=== PATIENT | female | born 1950 | race Caucasian/White ===

== ENCOUNTER 2020-05-15 07:45 | Emergency (ER) | payer MEDICARE, SELFPAY ==
[2020-05-15] VITALS (7 sets, daily range): BP systolic 122–159; BP diastolic 60–84; PULSE 81–92; RESP 17; TEMP 36.2; O2SAT 98; BMI 47.8
--- NOTE | ~2020-05-15 | XR_ITS ---
EXAMINATION: XR CHEST CLINICAL INFORMATION: Tachycardia lightheadedness COMPARISON: Prior chest April 2019 TECHNIQUE: 2 views of the chest were obtained. FINDINGS: No significant abnormality is noted involving the heart, lungs, mediastinum, bony thorax or soft tissues. XR/XR chest 2V IMPRESSION: Unremarkable examination.
--- NOTE | ~2020-05-15 | CT_ITS ---
EXAMINATION: CT ANGIOGRAM OF THE CHEST WITH AND WITHOUT CONTRAST (CT PULMONARY ANGIOGRAM FOR PE) CLINICAL INFORMATION: Metastatic breast CA. Rule out PE. Palpitations. Lightheaded. COMPARISON: Same day chest radiograph is reviewed. CTA chest PE study dated December 08, 2018. TECHNIQUE: Prior to contrast administration, noncontrast localization images were obtained. Subsequently, multidetector volumetric imaging was performed from the thoracic inlet to below the diaphragms following the administration of 75 mL Omnipaque 350 intravenous contrast. No contrast reaction reported Sagittal, coronal, and MIP oblique sagittal reformatted images were obtained on the CT workstation, uploaded to PACS, and reviewed. This CT examination was performed using dose optimization techniques as appropriate, variously including the following: *Automated exposure control *Adjustment of mA and/or kV according to patient size (this includes techniques or standardized protocols for targeted exams where dose is matched to indication/reason for exam; i.e. extremities or head) *Use of iterative reconstruction technique Total exam dose-length product 430 mGy-cm FINDINGS: QUALITY OF STUDY/CONTRAST BOLUS: The contrast bolus timing is satisfactory. However, there is fairly marked motion artifact in the bilateral lung bases limiting evaluation for pulmonary embolism. PULMONARY ARTERIES: There is no evidence of central pulmonary embolism. Limited evaluation of the segmental vessels in the bilateral lower lobes, particularly on the right. Otherwise no definite evidence of pulmonary emboli. THORACIC AORTA: No evidence of aneurysm or dissection. LUNG: There is hazy groundglass attenuation and possible slight nodular pattern in the periphery of the bilateral lung apices, right greater than left. This has increased since the prior CT from December 08, 2018. The remainder of the lung parenchyma is relatively clear. The central airways are patent. PLEURA: No pneumothorax or pleural effusion. MEDIASTINUM: No significant cardiomegaly. No pericardial effusion. No evidence of pathologically enlarged mediastinal or hilar lymphadenopathy. No evidence of septal bowing or right heart strain. CHEST WALL/AXILLA: Numerous surgical clips are visualized within the right chest wall and left axilla. OSSEOUS STRUCTURES: No definite acute or suspicious osseous lesion is demonstrated. UPPER ABDOMEN: Unremarkable. No reflux of contrast into the hepatic veins to suggest elevated right heart pressures. CT/CT angio chest PE protocol IMPRESSION: No evidence of central pulmonary emboli. Motion artifact in the lung bases, particularly right lower lobe, limits evaluation of those arterial branches. Peripheral groundglass micronodular opacities in the bilateral lung apices are of uncertain etiology, however the distribution may reflect radiation therapy related changes if patient has received prior radiation therapy for breast cancer treatment. VTE: negative
--- NOTE | 2020-05-15 08:36 | ECG_ITS ---
Test Reason : DIZZINESS Blood Pressure : / mmHG Vent. Rate : 084 BPM Atrial Rate : 084 BPM P-R Int : 136 ms QRS Dur : 088 ms QT Int : 398 ms P-R-T Axes : 008 -23 054 degrees QTc Int : 470 ms Normal sinus rhythm Moderate voltage criteria for LVH, may be normal variant Borderline ECG When compared with ECG of 08-DEC-2018 14:58, No significant change was found Referred By: Darlyn Ann Electronically Signed By:KATIA ASENCIO
[2020-05-15 09:00] LABS: Basophils Percent Auto 0.3 % (0-2); Eosinophils Percent Auto 0.7 % (0-4); Hematocrit 36.9 % (37-47); Hemoglobin 12.4 g/dl (12.0-16.0); Imm Gran Abs Auto 0.01 X10*3/uL (0.00-0.03); Imm Gran Pct Auto 0.3 % (0.0-0.4); Lymphocytes Absolute Auto 0.5 X10*3/uL (1.2-4.9); Lymphocytes Percent Auto 15.4 % (20-40); MANUAL DIFF FLAG SCAN; Mean Corpuscular HGB Conc 33.6 g/dl (31.0-35.0); Mean Corpuscular Hemoglobin 33.2 pg (27.0-33.0); Mean Corpuscular Volume 98.9 fL (80-98); Mean Platelet Volume 9.3 fL (9.4-12.3); Monocytes Absolute Auto 0.2 X10*3/uL (0.1-1.2); Monocytes Percent Auto 7.2 % (2-11); Neutrophils Absolute Auto 2.3 X10*3/uL (2.0-8.3); Neutrophils Percent Auto 76.1 % (45-73); Platelet Count 188 X10*3/uL (160-400); Red Blood Count 3.73 X10*6/uL (4.20-5.50); Red Cell Distribution Width 14.6 % (11.0-16.0); SCAN SMEAR FLAG 1; White Blood Count 3.1 X10*3/uL (4.8-10.8)
[2020-05-15 09:05] LABS: Prothrombin Time 12.1 SEC (10.8-13.0)
[2020-05-15 09:08] LABS: Partial Thromboplastin Time 36.1 SEC (24.1-38.0)
[2020-05-15] MEDS: 0.9 % Sodium Chloride 1,000 ML 999 ML IVCONT (09:08)
[2020-05-15 09:21] LABS: SLIDE REVIEW VERIFIED
--- NOTE | 2020-05-15 09:25 | ED.DIZZY ---
HPI - Dizziness General Chief Complaint: Dizziness Stated Complaint: high blood pressure, dizzyness Time Seen by Provider: 05/15/20 08:21 Source: patient Mode of arrival: ambulatory History of Present Illness HPI Narrative: 69-year-old female with a past medical history of metastatic breast cancer on oral chemotherapy presenting to the ED complaining of high blood pressure, elevated HR, lightheadedness, and palpitations x3 days. Reports blood pressure 150-160's/80 at home with heart rate in the 90s. Denies fever, chills, chest pain/shortness of breath, abdominal pain, nausea/vomiting, LE edema, numbness/tingling MD elicited complaint: lightheadedness Related Data Allergies Allergy/AdvReac Type Severity Reaction Status Date / Time No Known Allergies Allergy Unknown Unverified 12/03/19 14:54 indomethacin Allergy Unknown violent Uncoded 12/24/18 00:00 headache Review of Systems Review of Systems: Constitutional: No Fever, No Chills, No Fatigue, No Malaise ENT/Mouth: No sore throat, No Rhinorrhea, No Swallowing Difficulty Cardiovascular: No Chest Pain, No SOB, No Dyspnea on Exertion, No Orthopnea, No Edema, + Palpitations Respiratory: No Cough, No Dyspnea Gastrointestinal: No Nausea, No Vomiting, No Diarrhea, No Constipation, No Abdominal pain Genitourinary: No Dysuria, No Hematuria, No Flank Pain Musculoskeletal: No joint pain, No Myalgias, No Joint Swelling Skin: No Skin Lesions, No rash Neuro: No Weakness, No Numbness, No Paresthesias, No Loss of Consciousness, No Dizziness, +Lightheadedness, No Headache Yes all other systems are reviewed and are negative [facility] Past Medical History Attestation statement: The following information was validated with the patient. Medical History (Updated 05/15/20 @ 12:56 by BERTHA Linder) Breast cancer Social History Social History Smoked in Last 30 Days: No Use of substances other than those prescribed or required for medical reasons: No Advance Directives: No Advance Directives Information Provided: No Physical Exam Vital Signs: Vital Signs: Last Vital Signs Temp 97.1 F 05/15/20 08:01 Pulse 84 05/15/20 13:01 Resp 17 05/15/20 08:01 BP 147/76 H 05/15/20 13:01 Pulse Ox 98 05/15/20 08:01 Body Mass Index 47.8 Const: General: cooperative, healthy appearing, comfortable, no acute distress, well developed and alert Orientation/consciousness: patient oriented x3 Limitations: no limitations HENMT: Head: Yes normal to inspection Ears: hearing grossly normal bilaterally General nose exam: Normal external nose present Face and sinus: Yes normal facial exam Eyes: General: appearance normal, both eyes and all related structures Pupils: Equal, round and reactive pupils present EOM: EOMs intact bilaterally Neck: Neck: Yes normal visual inspection and Yes no meningeal signs Resp: Effort & Inspection: normal respiratory effort Auscultation: clear to auscultation bilaterally, no rales, no rhonchi and no wheezes Cardio: Rate: regular rate Heart sounds: S1 normal heart sound present and S2 normal heart sound present GI: Inspection: Yes normal to inspection Palpation (GI): Soft to palpation, nontender, no guarding and not rigid Skin: Rashes: no rashes Wounds: no wounds Neuro: General: patient oriented x3, gait normal, tone normal, moves all extremities, no meningeal signs, no focal motor deficits and CN's II-XI intact bilaterally Cranial nerves: Yes Equal, round and reactive pupils present Cognition (Neuro): normal cognition Gait exam (Neuro): Normal gait present Motor exam (neuro): 5/5 motor strength present throughout and Pronator motor function not present Coordination: [id number] test normal Extrem: General: Yes normal to inspection and Yes no pedal edema Course Course Course Narrative: -labs at patient's baseline. Initial troponin 6.8 > will obtain 3 hour repeat XR chest 2V IMPRESSION: Unremarkable examination. CT angio chest PE protocol IMPRESSION: No evidence of central pulmonary emboli. Motion artifact in the lung bases, particularly right lower lobe, limits evaluation of those arterial branches. Peripheral groundglass micronodular opacities in the bilateral lung apices are of uncertain etiology, however the distribution may reflect radiation therapy related changes if patient has received prior radiation therapy for breast cancer treatment. VTE: negative >> likely from prior radiation therapy but will obtain rapid COVID -1256--rapid COVID negative. Repeat troponin without 50% delta increase Initial orthostatic vital signs positive. Will repeat after IVF. -1304--repeat orthostatics improved/negative after IVF. Worrisome signs and symptoms and strict return precautions discussed. Patient verbalized understanding feel safe for discharge home MDM - Dizziness MDM Narrative Medical decision making narrative: 69-year-old female with a past medical history of metastatic breast cancer on oral chemotherapy presenting to the ED complaining of high blood pressure, elevated HR, lightheadedness, and palpitations x3 days. On exam initially tachycardic with heart rate of 92, blood pressure stable, NAD/nontoxic appearing, no focal neuro deficits, lungs CTA. Concern for metabolic/electrolyte abnormalities vs ACS vs PE vs HTN. Low concern for CVA or HTNsive urgency/emergency Plan: EKG, labs, CXR, IVF, CTA, orthostatics, Reassess Medical Records Attestation: I reviewed the patient's medical records. Lab Data Attestation: I reviewed the patient's lab results. Result diagrams: 05/15/20 08:55 05/15/20 08:55 Labs: Lab Results 05/15/20 05/15/20 05/15/20 Range/Units 08:55 08:55 08:55 WBC 3.1 L (4.8-10.8) X10*3/uL RBC 3.73 L (4.20-5.50) X10*6/uL Hgb 12.4 (12.0-16.0) g/dl Hct 36.9 L (37-47) % MCV 98.9 H (80-98) fL MCH 33.2 H (27.0-33.0) pg MCHC 33.6 (31.0-35.0) g/dl RDW 14.6 (11.0-16.0) % Plt Count 188 (160-400) X10*3/uL MPV 9.3 L (9.4-12.3) fL Immature Gran % (Auto) 0.3 (0.0-0.4) % Neut % (Auto) 76.1 H (45-73) % Lymph % (Auto) 15.4 L (20-40) % Wilkinson % (Auto) 7.2 (2-11) % Eos % (Auto) 0.7 (0-4) % Baso % (Auto) 0.3 (0-2) % Lymph # (Auto) 0.5 L (1.2-4.9) X10*3/uL Wilkinson # (Auto) 0.2 (0.1-1.2) X10*3/uL Eos # (Auto) 0.0 (0.0-0.4) X10*3/uL Baso # (Auto) 0.0 (0.0-0.2) X10*3/uL Abs Immat Gran (auto) 0.01 (0.00-0.03) X10*3/uL Absolute Neuts (auto) 2.3 (2.0-8.3) X10*3/uL Absolute Nucleated RBC 0.000 (0.0-0.012) X10*3/uL Nucleated RBC % (auto) 0.0 (0.0-0.2) /100WBC Smear Tech's Comments VERIFIED PT 12.1 (10.8-13.0) SEC INR 1.0 (0.9-1.1) APTT 36.1 (24.1-38.0) SEC Sodium 138 (135-145) mmol/L Potassium 4.0 (3.3-5.1) mmol/L Chloride 102 (96-108) mmol/L Carbon Dioxide 27 (22-29) mmol/L Anion Gap 13 (12-20) BUN 12 (9-16) mg/dL Creatinine 0.95 (0.5-1.4) mg/dL Estim Creat Clear Calc 70.9 Estimated GFR 58 Random Glucose 113 (60-115) mg/dL Calcium 9.0 (8.4-10.2) mg/dL Magnesium 2.2 (1.6-2.6) mg/dL Total Bilirubin 1.9 H (0.0-1.0) mg/dL Direct Bilirubin 0.6 H (0.0-0.5) mg/dL AST 18 (5-31) U/L ALT 15 (0-31) U/L Alkaline Phosphatase 89 (39-117) U/L Troponin I High Sens (<3.5-17.0) ng/L B-Natriuretic Peptide (<100) pg/mL Total Protein 7.3 (6.5-8.0) g/dL Albumin 4.5 (3.5-5.0) g/dL COVID-19 (TERI) (Negative) COVID-19 Clin Com 05/15/20 05/15/20 05/15/20 Range/Units 08:55 12:15 12:16 WBC (4.8-10.8) X10*3/uL RBC (4.20-5.50) X10*6/uL Hgb (12.0-16.0) g/dl Hct (37-47) % MCV (80-98) fL MCH (27.0-33.0) pg MCHC (31.0-35.0) g/dl RDW (11.0-16.0) % Plt Count (160-400) X10*3/uL MPV (9.4-12.3) fL Immature Gran % (Auto) (0.0-0.4) % Neut % (Auto) (45-73) % Lymph % (Auto) (20-40) % Wilkinson % (Auto) (2-11) % Eos % (Auto) (0-4) % Baso % (Auto) (0-2) % Lymph # (Auto) (1.2-4.9) X10*3/uL Wilkinson # (Auto) (0.1-1.2) X10*3/uL Eos # (Auto) (0.0-0.4) X10*3/uL Baso # (Auto) (0.0-0.2) X10*3/uL Abs Immat Gran (auto) (0.00-0.03) X10*3/uL Absolute Neuts (auto) (2.0-8.3) X10*3/uL Absolute Nucleated RBC (0.0-0.012) X10*3/uL Nucleated RBC % (auto) (0.0-0.2) /100WBC Smear Tech's Comments PT (10.8-13.0) SEC INR (0.9-1.1) APTT (24.1-38.0) SEC Sodium (135-145) mmol/L Potassium (3.3-5.1) mmol/L Chloride (96-108) mmol/L Carbon Dioxide (22-29) mmol/L Anion Gap (12-20) BUN (9-16) mg/dL Creatinine (0.5-1.4) mg/dL Estim Creat Clear Calc Estimated GFR Random Glucose (60-115) mg/dL Calcium (8.4-10.2) mg/dL Magnesium (1.6-2.6) mg/dL Total Bilirubin (0.0-1.0) mg/dL Direct Bilirubin (0.0-0.5) mg/dL AST (5-31) U/L ALT (0-31) U/L Alkaline Phosphatase (39-117) U/L Troponin I High Sens 6.8 9.8 (<3.5-17.0) ng/L B-Natriuretic Peptide 72 (<100) pg/mL Total Protein (6.5-8.0) g/dL Albumin (3.5-5.0) g/dL COVID-19 (TERI) Negative (Negative) COVID-19 Clin Com See Note Discharge Plan Discharge Clinical Impression: Lightheadedness, Heart palpitations Patient Disposition: Home, Self-Care Instructions: Lightheadedness (ED) Additional Instructions: Your blood work and imaging studies were reassuring today in the ED you COVID-19 test was negative It is important that you are staying hydrated at home Follow-up with her doctor as well as Cardiology Referrals: Roger Mcknight MD [Physician] - 1 week
[2020-05-15 09:35] LABS: Alanine Aminotransferase 15 U/L (0-31); Albumin Level 4.5 g/dL (3.5-5.0); Alkaline Phosphatase 89 U/L (39-117); Anion Gap 13 (12-20); Aspartate Amino Transferase 18 U/L (5-31); Bilirubin Direct 0.6 mg/dL (0.0-0.5); Bilirubin Total 1.9 mg/dL (0.0-1.0); Blood Urea Nitrogen 12 mg/dL (9-16); Carbon Dioxide 27 mmol/L (22-29); Chloride 102 mmol/L (96-108); Creatinine Clr Calc Pharmacy 70.9; Estimated Glomerular Filt Rate 58; Glucose Random 113 mg/dL (60-115); Magnesium 2.2 mg/dL (1.6-2.6); Sodium 138 mmol/L (135-145); Total Protein 7.3 g/dL (6.5-8.0)
[2020-05-15 09:39] LABS: B Type Natriuretic Peptide 72 pg/mL (<100); Troponin-I High Sensitivity 6.8 ng/L (<3.5-17.0)
[2020-05-15] MEDS: iohexoL 350 MG/ML 100 ML INFUS..BTL IV (10:35)
[2020-05-15 12:36] LABS: COVID-19 Test Negative (Negative); IDNOW Serial# 9DD0AD1C
[2020-05-15 12:45] LABS: Troponin-I High Sensitivity 9.8 ng/L (<3.5-17.0)
== END 2020-05-15 13:19 | disposition home or self-care (01) ==
PROVIDERS: Physician Assistant; Emergency Provider Emergency Medicine Emergency Medical Services; PCP Family Medicine
DX: R42 Dizziness and giddiness (principal); R00.2 Palpitations; Z20.822 Contact with and (suspected) exposure to COVID-19
CPT/HCPCS: 36415; 71046; 71275; 80048; 80076; 83735; 83880; 84484; 85025; 85610; 85730; 87635; 93005; 96360; 99283; 99284; Q9967

== ENCOUNTER 2020-08-27 19:28 | Emergency (ER) | payer MEDICARE, SELFPAY ==
--- NOTE | ~2020-08-27 | CT_ITS ---
EXAMINATION: CT ABDOMEN AND PELVIS WITHOUT CONTRAST CLINICAL INFORMATION: Left lower quadrant pain. Question diverticulitis COMPARISON: 05/12/2019 TECHNIQUE: Multidetector volumetric imaging was performed from the superior aspect of the liver through the pubic symphysis. Sagittal and coronal reformatted images were obtained on the technologist's workstation. This CT examination was performed using dose optimization techniques as appropriate, variously including the following: *Automated exposure control *Adjustment of mA and/or kV according to patient size (this includes techniques or standardized protocols for targeted exams where dose is matched to indication/reason for exam; i.e. extremities or head) *Use of iterative reconstruction technique DLP: 1867 mGy-cm FINDINGS: The lack of intravenous contrast limits evaluation of the solid visceral organs including the liver, spleen, pancreas, and kidneys. LUNG BASES: The visualized lung bases are unremarkable. LIVER, GALLBLADDER, AND BILIARY TREE: Liver is diffusely hypoattenuating consistent with diffuse hepatic steatosis. No focal liver lesion seen. The gallbladder is unremarkable with no evidence of radiopaque gallstones, gallbladder wall thickening, or obvious pericholecystic inflammatory changes. PANCREAS: Limited non-contrast evaluation is normal. No taj-pancreatic fluid. SPLEEN: Limited non-contrast evaluation is normal. ADRENAL GLANDS: Normal; no adrenal mass. KIDNEYS AND URETERS: 6-7 mm amorphous hyperdensity in the left upper pole could represent a hyperdense cyst. No hydronephrosis or calculi. GASTROINTESTINAL TRACT: Small hiatal hernia. Stomach and small bowel nondilated. Tortuous colon. Scattered colonic diverticulosis. No evidence of colitis or diverticulitis. ABDOMINAL WALL: Large hernia of the right lateral abdominal wall spigelian hernia containing small bowel and colon. No evidence of obstruction. LYMPH NODES: No pathologically enlarged lymph nodes in the abdomen or pelvis. VASCULAR: Normal caliber abdominal aorta. BLADDER: Unremarkable. PELVIC VISCERA: Normal noncontrast appearance of the uterus and ovaries. OSSEOUS STRUCTURES: No acute or suspicious osseous abnormalities. Multilevel degenerative changes of the lumbar spine. Bilateral hip arthroplasties. CT/CT abdomen pelvis wo con IMPRESSION: No acute CT findings. Large right lateral abdominal wall spigelian hernia. No evidence of obstruction.
[2020-08-27 20:00] VITALS: BP 152/82; PULSE 93; RESP 20; TEMP 36.7; O2SAT 97; BMI 46.1
--- NOTE | 2020-08-27 21:42 | ED.ABDPAIN ---
HPI - Abdominal Pain General Chief Complaint: Abdominal Pain Stated Complaint: abdomial pain Time Seen by Provider: 08/27/20 21:41 Source: patient Mode of arrival: ambulatory Limitations: no limitations History of Present Illness HPI narrative: Patient has been with history of diverticulitis noticed pain diffuse abdomen for last 3 -4 days getting worse spoke to her doctor who started her on Augmentin. patient comes here because she want to be sure is not diverticulitis complaining of nausea no vomiting no fever no chills no diarrhea no blood in stool pain is mostly upper abdomen Related Data Allergies Allergy/AdvReac Type Severity Reaction Status Date / Time No Known Allergies Allergy Unknown Verified 08/27/20 19:59 Review of Systems Review of Systems Yes all other systems are reviewed and are negative Physical Exam Vital Signs: Vital Signs: Last Vital Signs Temp 98.0 F 08/27/20 20:00 Pulse 93 08/27/20 20:00 Resp 20 08/27/20 20:00 BP 152/82 H 08/27/20 20:00 Pulse Ox 97 08/27/20 20:00 Body Mass Index 46.1 Appearance: Alert. Oriented X3. No acute distress. Obese Eyes: PERRLA, No Nystagmus ENT: Pharynx normal. Oral Mucosa moist Neck: Normal inspection. Neck supple. CVS: Normal heart rate and rhythm. Pulses normal. Respiratory: No respiratory distress. Equal air entry bilateral, no wheezing/rales/rhonchi Abdomen: Soft and diffuse tenderness upper abdomen no rebound tenderness or guarding Bowel sounds are present, no mass palpable, no CVA tenderness Skin: Skin warm and dry. Normal skin color. Normal skin turgor. Extremities: No lower extremity edema. No calf tenderness Neuro: Oriented X 3. No motor deficit. No sensory deficit.No cerebellar signs , cranial nerves II-XII intact MDM - Abdominal Pain MDM Narrative Medical decision making narrative: Patient with normal labs normal lactic acid CT scan negative for any inflammatory process patient pain is likely non pathological advised patient to have drink plenty of fluids and follow with PCP Lab Data Attestation: I reviewed the patient's lab results. Result diagrams: 08/27/20 22:00 08/27/20 22:00 Labs: Lab Results 08/27/20 08/27/20 08/27/20 Range/Units 22:00 22:00 22:00 WBC 3.1 L (4.8-10.8) X10*3/uL RBC 3.48 L (4.20-5.50) X10*6/uL Hgb 11.9 L (12.0-16.0) g/dl Hct 34.3 L (37-47) % MCV 98.6 H (80-98) fL MCH 34.2 H (27.0-33.0) pg MCHC 34.7 (31.0-35.0) g/dl RDW 14.3 (11.0-16.0) % Plt Count 161 (160-400) X10*3/uL MPV 9.4 (9.4-12.3) fL Immature Gran % (Auto) 0.3 (0.0-0.4) % Neut % (Auto) 65.5 (45-73) % Lymph % (Auto) 20.8 (20-40) % Hardin % (Auto) 12.5 H (2-11) % Eos % (Auto) 0.3 (0-4) % Baso % (Auto) 0.6 (0-2) % Lymph # (Auto) 0.7 L (1.2-4.9) X10*3/uL Hardin # (Auto) 0.4 (0.1-1.2) X10*3/uL Eos # (Auto) 0.0 (0.0-0.4) X10*3/uL Baso # (Auto) 0.0 (0.0-0.2) X10*3/uL Abs Immat Gran (auto) 0.01 (0.00-0.03) X10*3/uL Absolute Neuts (auto) 2.0 (2.0-8.3) X10*3/uL Absolute Nucleated RBC 0.000 (0.0-0.012) X10*3/uL Nucleated RBC % (auto) 0.0 (0.0-0.2) /100WBC Sodium 137 (135-145) mmol/L Potassium 4.2 (3.3-5.1) mmol/L Chloride 101 (96-108) mmol/L Carbon Dioxide 27 (22-29) mmol/L Anion Gap 13 (12-20) BUN 10 (9-16) mg/dL Creatinine 0.91 (0.5-1.4) mg/dL Estim Creat Clear Calc 71.4 Estimated GFR > 60 Random Glucose 118 H (60-115) mg/dL Lactic Acid 1.1 (0.5-2.0) mmol/L Calcium 9.2 (8.4-10.2) mg/dL Total Bilirubin 2.4 H (0.0-1.0) mg/dL AST 18 (5-31) U/L ALT 11 (0-31) U/L Alkaline Phosphatase 90 (39-117) U/L Total Protein 6.8 (6.5-8.0) g/dL Albumin 4.1 (3.5-5.0) g/dL Discharge Plan Discharge Clinical Impression: Abdominal pain Qualifiers: Abdominal location: generalized Qualified Code(s): R10.84 - Generalized abdominal pain Patient Disposition: Home, Self-Care Instructions: Abdominal Pain (ED) Additional Instructions: Drink plenty of fluids You do not have diverticulitis. Do not take antibiotics. Follow with PCP if any concerns PMFSH Past Medical History Medical History Breast cancer Surgical History Hip joint replacement status Social History Social History Advance Directives: No Advance Directives Information Provided: No
[2020-08-27 22:11] LABS: MANUAL DIFF FLAG NO
[2020-08-27 22:21] LABS: Basophils Percent Auto 0.6 % (0-2); Eosinophils Percent Auto 0.3 % (0-4); Hematocrit 34.3 % (37-47); Hemoglobin 11.9 g/dl (12.0-16.0); Imm Gran Abs Auto 0.01 X10*3/uL (0.00-0.03); Imm Gran Pct Auto 0.3 % (0.0-0.4); Lymphocytes Absolute Auto 0.7 X10*3/uL (1.2-4.9); Lymphocytes Percent Auto 20.8 % (20-40); Mean Corpuscular HGB Conc 34.7 g/dl (31.0-35.0); Mean Corpuscular Hemoglobin 34.2 pg (27.0-33.0); Mean Corpuscular Volume 98.6 fL (80-98); Mean Platelet Volume 9.4 fL (9.4-12.3); Monocytes Absolute Auto 0.4 X10*3/uL (0.1-1.2); Monocytes Percent Auto 12.5 % (2-11); Neutrophils Percent Auto 65.5 % (45-73); Platelet Count 161 X10*3/uL (160-400); Red Blood Count 3.48 X10*6/uL (4.20-5.50); Red Cell Distribution Width 14.3 % (11.0-16.0); White Blood Count 3.1 X10*3/uL (4.8-10.8)
[2020-08-27 22:41] LABS: Lactic Acid 1.1 mmol/L (0.5-2.0)
[2020-08-27 22:44] LABS: Alanine Aminotransferase 11 U/L (0-31); Albumin Level 4.1 g/dL (3.5-5.0); Alkaline Phosphatase 90 U/L (39-117); Anion Gap 13 (12-20); Aspartate Amino Transferase 18 U/L (5-31); Bilirubin Total 2.4 mg/dL (0.0-1.0); Blood Urea Nitrogen 10 mg/dL (9-16); Calcium 9.2 mg/dL (8.4-10.2); Carbon Dioxide 27 mmol/L (22-29); Chloride 101 mmol/L (96-108); Creatinine Clr Calc Pharmacy 71.4; Estimated Glomerular Filt Rate > 60; Glucose Random 118 mg/dL (60-115); Potassium 4.2 mmol/L (3.3-5.1); Sodium 137 mmol/L (135-145); Total Protein 6.8 g/dL (6.5-8.0)
== END 2020-08-28 15:51 | disposition home or self-care (01) ==
PROVIDERS: Emergency Provider Internal Medicine; PCP Family Medicine
DX: R10.84 Generalized abdominal pain (principal)
CPT/HCPCS: 36415; 74176; 80053; 83605; 85025; 99283; 99284

== ENCOUNTER 2020-09-02 01:18 | Inpatient (IN) | payer MEDICARE, SELFPAY ==
--- NOTE | ~2020-09-02 | FL_ITS ---
EXAMINATION: FL SMALL BOWEL SERIES CLINICAL INFORMATION: Small bowel obstruction COMPARISON: CT abdomen and pelvis 09/02/2020 TECHNIQUE: Following a environmental services assistant image of the abdomen, contrast was administered orally, and interval abdominal radiographs were performed to assess for contrast progression through the small bowel. Following contrast transit through the small bowel and into the colon, the patient was placed on the fluoroscopy table, and multiple spot images were obtained. FINDINGS: Fuel Storage Technician image of the abdomen demonstrates distended small bowel loops in the left upper quadrant. There is slow transit time of oral contrast material through the small bowel, with contrast present in the colon by 2 hours. Moderately distended small bowel loops are seen in the left midabdomen. The distal ileum, IC junction and the ascending colon lies within the lateral abdominal wall hernia. There is delayed visualization of contrast within the cecum and hepatic flexure including the transverse colon by 2 hours. FLUOROSCOPY TIME: 1.9 DOSE AREA PRODUCT: 28.8 uGy-m2 (microgray-meter squared) FL/FL small bowel follow through IMPRESSION: Delayed small bowel transit likely partial obstruction secondary to large right lateral abdominal wall hernia which contains terminal ileum, IC junction and the cecum.
--- NOTE | ~2020-09-02 | XR_ITS ---
EXAMINATION: XR ABDOMEN KUB CLINICAL INDICATION: Nausea. No bowel movement for 5 days COMPARISON: CT dated 08/27/2020 TECHNIQUE: 2 views of the abdomen. XR/XR KUB FINDINGS/IMPRESSION: There are mildly dilated loops of small bowel, left mid abdomen. No colonic loops are seen. No radiographic evidence of intraperitoneal free air. No unusual soft tissue calcifications.
--- NOTE | ~2020-09-02 | CT_ITS ---
EXAMINATION: CT ABDOMEN AND PELVIS WITH CONTRAST CLINICAL INFORMATION: Abdominal discomfort. Nausea and vomiting. COMPARISON: 08/27/2020 TECHNIQUE: Multidetector volumetric images were obtained from the superior aspect of the liver through the pubic symphysis following administration 85 mL of Omnipaque 350 intravenous contrast. Sagittal and coronal reformatted images were obtained on the technologist's workstation. Oral contrast: No This CT examination was performed using dose optimization techniques as appropriate, variously including the following: *Automated exposure control *Adjustment of mA and/or kV according to patient size (this includes techniques or standardized protocols for targeted exams where dose is matched to indication/reason for exam; i.e. extremities or head) *Use of iterative reconstruction technique DLP: 1245 mGy-cm FINDINGS: LUNG BASES: The visualized lung bases are unremarkable. LIVER, GALLBLADDER, AND BILIARY TREE: The liver is normal in size, shape, and attenuation. No focal hepatic lesion or biliary ductal dilatation is present. Gallbladder unremarkable. PANCREAS: Unremarkable. SPLEEN: Unremarkable. ADRENAL GLANDS: Unremarkable. KIDNEYS AND URETERS: The kidneys are normal in size, shape, and attenuation. There are scattered bilateral subcentimeter renal cysts. No hydronephrosis, hydroureter, or calculi seen. No perinephric stranding. BLADDER: Unremarkable. GASTROINTESTINAL TRACT: Again seen is a large right spiculated hernia containing the right: In the proximal transverse colon as well as the terminal and distal ileum. There is mild dilatation of multiple small bowel loops measuring up to 3.8 cm in diameter. These loops course into the right spiculated hernia and gradually taper to normal caliber with a relative point of transition within the hernia, without discernible etiology. The appendix is within the hernia sac and is normal in appearance. Scattered left colonic diverticula. No evidence of diverticulitis. ABDOMINAL WALL: Right spiculated hernia as above. Small fat-containing umbilical hernia without inflammation. LYMPH NODES: Normal. VASCULAR: Aorta is atherosclerotic but normal caliber. Patent venous structures. PELVIC VISCERA: Uterus and adnexa unremarkable. OSSEOUS STRUCTURES: No acute or suspicious osseous abnormalities. CT/CT abdomen pelvis w con IMPRESSION: * There is a small bowel obstruction with point of transition within a large right spiculated hernia, the mechanical etiology of which is unclear, however opacity transition point, the ileum is decompressed (see notiveros images). The point of transition does not relate to the defect in the right ventrolateral abdominal wall per se, may relate to an adhesion, or occult internal hernia. * No evidence of bowel ischemia.
--- NOTE | ~2020-09-02 | XR_ITS ---
EXAMINATION: XR CHEST CLINICAL INFORMATION: G-tube placement COMPARISON: Previous chest x-ray and chest CTA April [address] of the abdomen and pelvis from earlier the same day TECHNIQUE: Frontal view of the chest was obtained. FINDINGS: The lung apices are not included in the [id number]. The cardiac silhouette does not appear enlarged. Visualized hilar and mediastinal contours are unremarkable. The visualized lung are clear. There is no pleural effusion or pneumothorax. There is enterogastric tube projecting over the stomach. There are dilated loops of small bowel with air-fluid levels. XR/XR chest 1V IMPRESSION: Enterogastric tube projects over stomach.
[2020-09-02 01:37] VITALS: BP 112/84; PULSE 87; RESP 16; TEMP 36.8; O2SAT 96; BMI 46.0
--- NOTE | 2020-09-02 01:38 | ECG_ITS ---
Test Reason : ABDOMINAL PAIN Blood Pressure : / mmHG Vent. Rate : 084 BPM Atrial Rate : 084 BPM P-R Int : 132 ms QRS Dur : 086 ms QT Int : 396 ms P-R-T Axes : 025 -24 041 degrees QTc Int : 467 ms Sinus rhythm with Premature atrial complexes Voltage criteria for left ventricular hypertrophy Abnormal ECG When compared with ECG of 15-MAY-2020 10:28, Premature atrial complexes are now Present Referred By: Carolina Moran Electronically Signed By:KATIA ASENCIO
[2020-09-02 02:00] LABS: Hematocrit 38.9 % (37-47); Hemoglobin 13.9 g/dl (12.0-16.0); Mean Corpuscular HGB Conc 35.7 g/dl (31.0-35.0); Mean Corpuscular Hemoglobin 34.2 pg (27.0-33.0); Mean Corpuscular Volume 95.6 fL (80-98); Mean Platelet Volume 9.8 fL (9.4-12.3); Platelet Count 371 X10*3/uL (160-400); Red Blood Count 4.07 X10*6/uL (4.20-5.50); Red Cell Distribution Width 14.2 % (11.0-16.0)
[2020-09-02 02:05] LABS: White Blood Count 2.4 X10*3/uL (4.8-10.8)
[2020-09-02 02:36] LABS: Band Neutrophils Percent 4 % (3-5); Basophils Percent Manual 2 % (0-1); Eosinophils Percent Manual 2 % (0-4); Lymphocytes Absolute Manual 0.6 X10*3/uL (0.6-4.8); Lymphocytes Percent Manual 26 % (20-40); Macrocytosis 1+ (5-14) /OIF; Monocytes Absolute Manual 0.5 X10*3/uL (0.0-1.2); Monocytes Percent Manual 20 % (2-11); Myelocytes Percent 2 %; Neutrophils Absolute Manual 1.2 X10*3/uL (2.2-7.9); Neutrophils Percent Manual 44 % (45-73); Platelet Estimate NORMAL (NORMAL); RBC Morphology NOTED
[2020-09-02 02:37] LABS: Acanthocytes 1+ (0-2) /OIF; Large Platelet PRESENT; Platelet Morphology Comment NORMAL; Polychromasia 1+ (0-2) /OIF; Toxic Vacuolation PRESENT
[2020-09-02] MEDS: ondansetron HCL 4 MG/2 ML VIAL IVPUSH ×2 (02:37→08:59)
--- NOTE | 2020-09-02 03:06 | ED_ITS ---
HPI - Abdominal Pain General Chief Complaint: Abdominal Pain Stated Complaint: vomiting Time Seen by Provider: 09/02/20 01:38 Source: patient Mode of arrival: ambulatory History of Present Illness HPI narrative: 70-year-old female with history of breast CA who presents with persistent nausea and vomiting since her evaluation approximately 1 week ago with only 1 episode of bowel movement since that time. She denies fever, chills, shortness of breath, chest pain/palpitations, or urinary symptoms. Patient states that she became concerned when she was puking up feculent material a couple of days ago. Related Data Allergies Allergy/AdvReac Type Severity Reaction Status Date / Time No Known Allergies Allergy Unknown Verified 08/27/20 19:59 Review of Systems Review of Systems Pertinent positives and negatives as per HPI and 10 point review of systems is otherwise negative. Physical Exam Vital Signs: Vital Signs: Last Vital Signs Temp 98.2 F 09/02/20 01:37 Pulse 87 09/02/20 01:37 Resp 16 09/02/20 01:37 BP 112/84 09/02/20 01:37 Pulse Ox 96 09/02/20 01:37 Body Mass Index 46.0 VITAL SIGNS: Reviewed. GENERAL: Well developed, well nourished, in no acute distress. HEAD: Normocephalic/atraumatic EYES: PERRLA, EOMI EARS: Ext canals without abnormality OROPHARYNX: no oral lesions noted, posterior pharynx clear NECK: Supple, no adenopathy LUNGS: Normal breath sounds. No adventitious sounds or accessory muscle use. Sp O2<96> CARDIOVASCULAR: Regular rate and rhythm without noted murmurs ABDOMEN: Obese, Soft, non-tender, non-distended with hypoactive bowel sounds. Exam limited by body habitus NEUROLOGIC: Alert and oriented x 4. Strength and sensation to light touch were grossly intact x 4. Course Course Course Narrative: 70-year-old female with history and clinical presentation suggestive of possible obstruction. Review of all investigations consistent with dehydration as well as SBO. I discussed this case with Dr. Thapa who will be by to see the patient. Signed out to Dr Reynoso. Reevaluation(s) Reevaluation #1: Patient placed in physician observation because the patient needed more time to be seen by surgery. At the time observation was started the patient's vital signs were stable, patient is alert and oriented, neuro: Nonfocal, CV RRR, lungs clear Time: 05:17 MDM - Abdominal Pain Lab Data Result diagrams: 09/02/20 01:54 09/02/20 02:35 Labs: Lab Results 09/02/20 09/02/20 09/02/20 Range/Units 01:54 02:35 02:35 WBC 2.4 L (4.8-10.8) X10*3/uL RBC 4.07 L (4.20-5.50) X10*6/uL Hgb 13.9 (12.0-16.0) g/dl Hct 38.9 (37-47) % MCV 95.6 (80-98) fL MCH 34.2 H (27.0-33.0) pg MCHC 35.7 H (31.0-35.0) g/dl RDW 14.2 (11.0-16.0) % Plt Count 371 D (160-400) X10*3/uL MPV 9.8 (9.4-12.3) fL Immature Gran % (Auto) Cancelled Neut % (Auto) Cancelled Lymph % (Auto) Cancelled Jerauld % (Auto) Cancelled Eos % (Auto) Cancelled Baso % (Auto) Cancelled Lymph # (Auto) Cancelled Jerauld # (Auto) Cancelled Eos # (Auto) Cancelled Baso # (Auto) Cancelled Abs Immat Gran (auto) Cancelled Absolute Neuts (auto) Cancelled Absolute Nucleated RBC 0.000 (0.0-0.012) X10*3/uL Nucleated RBC % (auto) 0.0 (0.0-0.2) /100WBC Neutrophils % (Manual) 44 L (45-73) % Band Neutrophils % 4 (3-5) % Lymphocytes % (Manual) 26 (20-40) % Monocytes % (Manual) 20 H (2-11) % Eosinophils % (Manual) 2 (0-4) % Basophils % (Manual) 2 H (0-1) % Myelocytes % 2 % Abs Neuts (Manual) 1.2 L (2.2-7.9) X10*3/uL Lymphocytes # (Manual) 0.6 (0.6-4.8) X10*3/uL Monocytes # (Manual) 0.5 (0.0-1.2) X10*3/uL Toxic Vacuolation PRESENT Platelet Estimate NORMAL (NORMAL) Large Platelets PRESENT Plt Morphology Comment NORMAL RBC Morphology NOTED Polychromasia 1+ (0-2) /OIF Macrocytosis 1+ (5-14) /OIF Acanthocytes (Spur) 1+ (0-2) /OIF Sodium 130 L (135-145) mmol/L Potassium 4.0 (3.3-5.1) mmol/L Chloride 84 L (96-108) mmol/L Carbon Dioxide 31 H (22-29) mmol/L Anion Gap 19 (12-20) BUN 34 H D (9-16) mg/dL Creatinine 1.38 (0.5-1.4) mg/dL Estim Creat Clear Calc 47.0 Estimated GFR 38 Random Glucose 140 H (60-115) mg/dL Calcium 9.0 (8.4-10.2) mg/dL Magnesium 2.2 (1.6-2.6) mg/dL Total Bilirubin 3.4 H (0.0-1.0) mg/dL AST 29 D (5-31) U/L ALT 40 H (0-31) U/L Alkaline Phosphatase 83 (39-117) U/L Total Protein 7.4 (6.5-8.0) g/dL Albumin 4.5 (3.5-5.0) g/dL Lipase 25 (8-78) U/L COVID-19 (TERI) (Negative) COVID-19 Clin Com 09/02/20 Range/Units 05:27 WBC (4.8-10.8) X10*3/uL RBC (4.20-5.50) X10*6/uL Hgb (12.0-16.0) g/dl Hct (37-47) % MCV (80-98) fL MCH (27.0-33.0) pg MCHC (31.0-35.0) g/dl RDW (11.0-16.0) % Plt Count (160-400) X10*3/uL MPV (9.4-12.3) fL Immature Gran % (Auto) Neut % (Auto) Lymph % (Auto) Jerauld % (Auto) Eos % (Auto) Baso % (Auto) Lymph # (Auto) Jerauld # (Auto) Eos # (Auto) Baso # (Auto) Abs Immat Gran (auto) Absolute Neuts (auto) Absolute Nucleated RBC (0.0-0.012) X10*3/uL Nucleated RBC % (auto) (0.0-0.2) /100WBC Neutrophils % (Manual) (45-73) % Band Neutrophils % (3-5) % Lymphocytes % (Manual) (20-40) % Monocytes % (Manual) (2-11) % Eosinophils % (Manual) (0-4) % Basophils % (Manual) (0-1) % Myelocytes % % Abs Neuts (Manual) (2.2-7.9) X10*3/uL Lymphocytes # (Manual) (0.6-4.8) X10*3/uL Monocytes # (Manual) (0.0-1.2) X10*3/uL Toxic Vacuolation Platelet Estimate (NORMAL) Large Platelets Plt Morphology Comment RBC Morphology Polychromasia /OIF Macrocytosis /OIF Acanthocytes (Spur) /OIF Sodium (135-145) mmol/L Potassium (3.3-5.1) mmol/L Chloride (96-108) mmol/L Carbon Dioxide (22-29) mmol/L Anion Gap (12-20) BUN (9-16) mg/dL Creatinine (0.5-1.4) mg/dL Estim Creat Clear Calc Estimated GFR Random Glucose (60-115) mg/dL Calcium (8.4-10.2) mg/dL Magnesium (1.6-2.6) mg/dL Total Bilirubin (0.0-1.0) mg/dL AST (5-31) U/L ALT (0-31) U/L Alkaline Phosphatase (39-117) U/L Total Protein (6.5-8.0) g/dL Albumin (3.5-5.0) g/dL Lipase (8-78) U/L COVID-19 (TERI) Negative (Negative) COVID-19 Clin Com See Note Discharge Plan Discharge Clinical Impression: SBO (small bowel obstruction), Dehydration Patient Disposition: Ad[facility] As [facility] Past Medical History Source: nursing notes reviewed Medical History Breast cancer Surgical History Hip joint replacement status Social History Social History Alcohol intake: never Patient Tobacco Use Status: Never used Tobacco Use of substances other than those prescribed or required for medical reasons: No Advance Directives: No Advance Directives Information Provided: Yes
[2020-09-02 03:09] LABS: Magnesium 2.2 mg/dL (1.6-2.6)
[2020-09-02 03:10] LABS: Alanine Aminotransferase 40 U/L (0-31); Albumin Level 4.5 g/dL (3.5-5.0); Alkaline Phosphatase 83 U/L (39-117); Anion Gap 19 (12-20); Aspartate Amino Transferase 29 U/L (5-31); Bilirubin Total 3.4 mg/dL (0.0-1.0); Blood Urea Nitrogen 34 mg/dL (9-16); Carbon Dioxide 31 mmol/L (22-29); Chloride 84 mmol/L (96-108); Estimated Glomerular Filt Rate 38; Glucose Random 140 mg/dL (60-115); Lipase 25 U/L (8-78); Sodium 130 mmol/L (135-145); Total Protein 7.4 g/dL (6.5-8.0)
[2020-09-02] MEDS: 0.9 % Sodium Chloride 1,000 ML 999 ML IV ×2 (03:22→06:36)
[2020-09-02] MEDS: iohexoL 350 MG/ML 100 ML INFUS..BTL 85 ML IV (04:28)
--- NOTE | 2020-09-02 05:40 | PC.NURSE ---
difficult to pass NG tube, aware. 2 attempts made.
[2020-09-02 05:51] LABS: COVID-19 Test Negative (Negative); IDNOW Serial# 9DD0AD1C
--- NOTE | 2020-09-02 06:07 | PC.NURSE ---
MD at bedside to attempt NG tube placement NG insertion unsuccessful
--- NOTE | 2020-09-02 07:37 | P.HPGS_ITS ---
History of Present Illness History of Present Illness Date of Service: 09/05/20 Chief complaint: partial small bowel obstruction Narrative: Imani Carr is a 70 year old female who came to the emergency room early this morning because of nausea and vomiting. She also describes some vague abdominal pain, diffuse was mostly on the upper abdomen. She states that this has been all going on for a week now. She actually came to the emergency room a week ago for similar problems and diagnosed to have constipation. She says however that she her symptoms have persisted throughout the week. She describes frequent episodes of small bilious emesis and dry heaving. She does not recall when her last bowel movement was but states that she has had no good bowel movement in at least 5 days. She also does not recall when she had last passed flatus. She says that she know she has a hernia on the right side of her abdomen for many years now. She says that she had been told about this many years ago. Review of her old records did show that she had repair of a right lower quadrant hernia without mesh in 2006. The patient stated that she had recurrence of this hernia just a few months later. Review of Systems Constitutional: Constitutional: Denies chills and Denies fever(s) Cardiovascular: Cardiovascular: Denies chest pain, Denies dyspnea and Denies dyspnea on exertion Respiratory: Respiratory: Denies cough, Denies dyspnea and Denies dyspnea on exertion Gastrointestinal: Gastrointestinal: Denies hematochezia, Denies change in bowel habits and Reports constipation Genitourinary: Genitourinary: Denies hematuria Musculoskeletal: Musculoskeletal: Denies back pain and Denies limited range of motion Neurologic: Denies focal weakness and Denies convulsions Psychiatric: Psychiatric: Denies depression and Denies mood swings [facility] Past Medical History Medical History Breast cancer Morbid obesity Surgical History Surgical History H/O hernia repair Hip joint replacement status Social History Social History Household Members: None Housing: Other Housing Other:: COOP Do you presently have visiting nurse or other home services: No Alcohol intake: never Patient Tobacco Use Status: Never used Tobacco Use of substances other than those prescribed or required for medical reasons: No Currently Displaying Signs/Symptoms of Drug Intoxication Withdrawal: No Have you been hit, kicked, punched, or otherwise hurt by someone within the past year? If so, by whom?: No Do you feel safe in your current relationship?: No Is there a partner from a previous relationship who is making you feel unsafe now?: No Are you made to feel afraid or neglected: No Advance Directives: No Advance Directives Information Provided: Yes Do you have thoughts of harming others: None Do you have a plan to hurt others: No Plan Recently lost weight without trying: No Nutrition Risks: No Nutritional Risk Patient : No : No Poor oral hygiene: No service: No Meds Allergies Allergy/AdvReac Type Severity Reaction Status Date / Time No Known Allergies Allergy Unknown Verified 08/27/20 19:59 Active Medications: Current Medications Generic Name Dose Route Start Last Admin Trade Name Freq PRN Reason Stop Dose Admin Heparin Sodium (Porcine) 5,000 unit 09/02/20 07:45 Heparin Sodium,Porcine 5,000 Unit/Ml Vial SUBCUT Q8H [facility] Morphine Sulfate 3 mg 09/02/20 07:36 Morphine Sulfate 4 Mg/Ml Cartridge IVPUSH Q4H PRN Pain, Severe (Pain Scale 7-10) Ondansetron HCl 4 mg 09/02/20 07:33 Ondansetron Hcl 4 Mg/2 Ml Vial IVPUSH Q8H PRN Nausea and Vomiting Sodium Chloride 3 ml 09/02/20 08:00 0.9 % Sodium Chloride Flush 3 Ml [facility] Medication Instructions Recorded Confirmed Last Taken Type letrozole 2.5 mg PO DAILY 09/02/20 09/02/20 09/01/20 08:00 History palbociclib [Ibrance] 100 mg PO DAILY 09/02/20 09/02/20 09/01/20 08:00 History Physical Exam Vital Signs: Vital Signs: Last Vital Signs Temp 98.2 F 09/02/20 01:37 Pulse 87 09/02/20 01:37 Resp 16 09/02/20 01:37 BP 112/84 09/02/20 01:37 Pulse Ox 96 09/02/20 01:37 Body Mass Index 46.0 Const: Other: Appears morbidly obese, looks well General: comfortable and no acute distress Orientation/consciousness: patient oriented x3 Neck: Neck: Yes no lymphadenopathy Resp: Auscultation: clear to auscultation bilaterally Cardio: Rhythm: regular rhythm GI: Other: Currently nontender, no guarding or rebound, unable to clearly palpate any hernia because of her morbid obesity Palpation (GI): Soft to palpation, nontender and no guarding Neuro: General: patient oriented x3 Results Results Labs: Short CBC 09/02/20 Range/Units 01:54 WBC 2.4 L (4.8-10.8) X10*3/uL Hgb 13.9 (12.0-16.0) g/dl Hct 38.9 (37-47) % Plt Count 371 D (160-400) X10*3/uL BMP 09/02/20 02:35 Sodium 130 L Potassium 4.0 Chloride 84 L Carbon Dioxide 31 H BUN 34 H D Creatinine 1.38 Calcium 9.0 Liver Function 09/02/20 Range/Units 02:35 Total Bilirubin 3.4 H (0.0-1.0) mg/dL AST 29 D (5-31) U/L ALT 40 H (0-31) U/L Alkaline Phosphatase 83 (39-117) U/L Albumin 4.5 (3.5-5.0) g/dL Assessment and Plan (1) SBO (small bowel obstruction): Status: Acute He has had nausea and vomiting for over week with vague abdominal pain. I have reviewed her CAT scan this is suggestive of partial small-bowel obstruction. She does have a large hernia on the right side of her abdomen which she says she has had for 10 years now. There is some tapering of the small bowel loops distal to this but there does not appear to be any acute incarceration or strangulation. Furthermore, the transition point does not appear to be tender to hernia defect. Other etiology may be adhesions either from her previous hernia surgery or from the hernia itself. Except for her low sodium, her labs are unremarkable. This CAT scan with the radiologist. At this time, she has a very benign exam finding. Her that we will manage this conservatively for now. She will be put on bowel rest. I did explain to her that we may need to put an NG tube if she continues to have frequent vomiting. She says that she has not had any vomiting since she came to the ER. She understands that there is always the possibility of her requiring laparotomy. She says she understands the plan as above and is comfortable with this. Quality Stroke Does the patient have a stroke diagnosis?: No VTE Prior VTE?: No VTE Risk Level:: Medical - moderate - high VTE Device Contraindication: N/A - Device Ordered VTE Drug Contraindication: N/A - Med Ordered Procedures Date of Service Date of Service: 09/02/20
[2020-09-02] MEDS: Heparin Sodium,Porcine 5,000 UNIT/ML VIAL 5000 UNIT SUBCUT ×3 (08:16→20:39)
[2020-09-02 09:39] VITALS: BP 154/88; PULSE 91; RESP 20; TEMP 36.7; O2SAT 95
--- NOTE | 2020-09-02 10:07 | PC.NURSE ---
SECURITY MADE AWARE OF PTS CAR AND WHERE IT IS PARKED.
[2020-09-02 10:09] VITALS: BMI 46.1
[2020-09-02] MEDS: 0.9 % Sodium Chloride 1,000 ML 100 ML IVCONT ×2 (11:14→20:38)
[2020-09-02 13:25] LABS: Glucose Urine UA NEG (NEG); Leukocyte Esterase Urine NEG (NEG); Nitrite Urine NEG (NEG); PH 5.5 (5.0-8.0); Urine Blood NEG (NEG); Urine Ketones 15 MG/DL (NEG); Urine Protein 1+ MG/DL (NEG-TRACE)
[2020-09-02 13:26] LABS: Appearance Urine CLEAR; Color Urine YELLOW
[2020-09-02 13:50] LABS: RBC Urine 0 /HPF (0); Renal Epithelial Cells Urine 1+ /LPF; Squamous Epithelial Cell Urine 2+ /LPF; WBC Urine 0 /HPF (0-4)
--- NOTE | 2020-09-02 13:53 | MHC.CM.PN ---
met with pt who is indepedent cm i ntervention is felt not indicated according to pt
--- NOTE | 2020-09-02 14:02 | PM.EVENT ---
Event Note Date of Service: 09/02/20 Event Note: ED staff unable to insert NGT earlier I was able to insert Fr14 NGT with some difficulty large amounts of stomach contents evacuated NGT position confirmed with CXR CT reviewed with radiologist - PSBO likely within large hernia on the right side but not due to the defect itself, has air distally; no signs of vascular compromise/acute incarceration; exam also very benign explained to pt - NGT, IVF, with hope of resolution if she does not improve - likely explore and repair hernia she understands the plan and agrees
[2020-09-02 15:40] VITALS: BP 98/66; PULSE 79; RESP 18; TEMP 36.6; O2SAT 98
[2020-09-02] MEDS: 0.9 % Sodium Chloride Flush 3 ML SYRINGE IVFLUSH (16:25)
[2020-09-02 23:34] VITALS: BP 164/72; PULSE 76; RESP 18; TEMP 36.6; O2SAT 96
[2020-09-03] MEDS: 0.9 % Sodium Chloride 1,000 ML 100 ML IVCONT ×2 (05:52→16:06)
[2020-09-03 06:25] LABS: Hematocrit 32.3 % (37-47); Hemoglobin 10.9 g/dl (12.0-16.0); Mean Corpuscular HGB Conc 33.7 g/dl (31.0-35.0); Mean Corpuscular Hemoglobin 33.5 pg (27.0-33.0); Mean Corpuscular Volume 99.4 fL (80-98); Mean Platelet Volume 9.5 fL (9.4-12.3); Platelet Count 263 X10*3/uL (160-400); Red Blood Count 3.25 X10*6/uL (4.20-5.50); Red Cell Distribution Width 14.3 % (11.0-16.0)
[2020-09-03 06:33] LABS: White Blood Count 2.5 X10*3/uL (4.8-10.8)
[2020-09-03 06:51] LABS: Anion Gap 10 (12-20); Blood Urea Nitrogen 22 mg/dL (9-16); Calcium 8.4 mg/dL (8.4-10.2); Carbon Dioxide 33 mmol/L (22-29); Chloride 95 mmol/L (96-108); Creatinine Clr Calc Pharmacy 69.2; Estimated Glomerular Filt Rate 59; Glucose Random 97 mg/dL (60-115); Potassium 3.7 mmol/L (3.3-5.1); Sodium 134 mmol/L (135-145)
[2020-09-03 07:10] LABS: Eosinophils Absolute Manual 0.1 X10*3/UL (0.0-0.8); Eosinophils Percent Manual 2 % (0-4); Lymphocytes Absolute Manual 0.7 X10*3/uL (0.6-4.8); Lymphocytes Percent Manual 27 % (20-40); Monocytes Absolute Manual 0.1 X10*3/uL (0.0-1.2); Monocytes Percent Manual 5 % (2-11); Neutrophils Percent Manual 66 % (45-73); Ovalocytes 1+ (5-14) /OIF; Platelet Estimate NORMAL (NORMAL); Platelet Morphology Comment NORMAL; Polychromasia 1+ (0-2) /OIF; RBC Morphology NOTED
[2020-09-03 07:33] VITALS: BP 133/72; PULSE 80; RESP 16; TEMP 36.1; O2SAT 99
[2020-09-03 08:12] LABS: Band Neutrophils Percent 0 % (3-5); Neutrophils Absolute Manual 1.7 X10*3/uL (2.2-7.9)
[2020-09-03] MEDS: Heparin Sodium,Porcine 5,000 UNIT/ML VIAL 5000 UNIT SUBCUT ×2 (08:18→16:13)
--- NOTE | 2020-09-03 08:46 | P.PNGS_ITS ---
Subjective Subjective Date of Service: 09/03/20 Interval history: Abdominal pain much improved this morning, no nausea or vomiting, no flatus or BM. NGT intact, nonbilious fluid now. Physical Exam Vital Signs: Vital Signs: Last Vital Signs Temp 97 F 09/03/20 07:33 Pulse 80 09/03/20 07:33 Resp 16 09/03/20 07:33 BP 133/72 09/03/20 07:33 Pulse Ox 99 09/03/20 07:33 Body Mass Index 46.1 Const: General: cooperative, comfortable, no acute distress, alert, awake and Physically active Nutritional Appearance: overweight Orientatio n/consciousness: patient oriented x3 Limitations: no limitations Resp: Effort & Inspection: normal respiratory effort, no cough, grunting and not labored Auscultation: no crackles GI: Other: obese, soft, no tenderness, no rebound, few bowel sounds. Percussion: Yes normal to percussion Skin: General skin exam: no rashes or lesions noted Neuro: General: patient oriented x3 Extrem: General: Yes no clubbing, cyanosis or edema Progress Note: A&P Assessment and plan (1) SBO (small bowel obstruction): Status: Acute Assessment and Plan: SBO probably due to adhesions/hernia, much improved today after NGT decompressi on. No flatus or BM yet, but no pain either. Continue IVFs, NPO Await return of bowel function. Encouraged ambulation. (2) H/O hernia repair: Status: Acute Fall Risk Details Current Medications: Current Medications Generic Name Dose Route Start Last Admin Trade Name Freq PRN Reason Stop Dose Admin Benzocaine 1 lozenge 09/02/20 16:19 Throat Lozenge, Medicated Lozenge MUCOUS MEM Q2H PRN Sore Throat Heparin Sodium (Porcine) 5,000 unit 09/02/20 07:45 09/03/20 08:18 Heparin Sodium,Porcine 5,000 Unit/Ml Vial SUBCUT 5,000 unit Q8H ALIYAH Administration Sodium Chloride 1,000 mls @ 100 mls/hr 09/02/20 08:00 09/03/20 05:52 Ns IVCONT 100 mls/hr .Q10H ALIYAH Administration Morphine Sulfate 3 mg 09/02/20 07:36 Morphine Sulfate 4 Mg/Ml Cartridge IVPUSH Q4H PRN Pain, Severe (Pain Scale 7-10) Ondansetron HCl 4 mg 09/02/20 07:33 09/02/20 08:59 Ondansetron Hcl 4 Mg/2 Ml Vial IVPUSH 4 mg Q8H PRN Administration Nausea and Vomiting Sodium Chloride 3 ml 09/02/20 08:00 09/03/20 08:19 0.9 % Sodium Chloride Flush 3 Ml Syringe IVFLUSH Not Given QSHIFT ALIYAH Time Spent With Patient Time: Total time spent is greater than 50% in coordination of care (as documented) at patient's floor/unit and/or counseling patient: Time with patient: 15 - 24 minutes Procedures Date of Service Date of Service: 09/03/20 Quality Stroke Does the patient have a stroke diagnosis?: No VTE Prior VTE?: No VTE Risk Level:: Medical - moderate - high VTE Device Contraindication: N/A - Device Ordered VTE Drug Contraindication: N/A - Med Ordered
[2020-09-03] MEDS: Throat Lozenge, Medicated LOZENGE 1 LOZENGE MUCOUS MEM ×2 (12:52→17:14)
[2020-09-03 14:59] VITALS: BP 126/58; PULSE 73; RESP 16; TEMP 36.1; O2SAT 98
[2020-09-03] MEDS: 0.9 % Sodium Chloride Flush 3 ML SYRINGE IVFLUSH (16:07)
[2020-09-03 23:36] VITALS: BP 136/65; PULSE 74; RESP 16; TEMP 36.3; O2SAT 97
[2020-09-04] MEDS: Heparin Sodium,Porcine 5,000 UNIT/ML VIAL 5000 UNIT SUBCUT ×3 (00:26→16:32)
[2020-09-04] MEDS: Throat Lozenge, Medicated LOZENGE 1 LOZENGE MUCOUS MEM (00:26)
--- NOTE | 2020-09-04 07:16 | PC.NURSE ---
120 output NGT, npo, c/o weakness/hunger
[2020-09-04 07:37] VITALS: BP 141/72; PULSE 74; RESP 16; TEMP 36.1; O2SAT 98
--- NOTE | 2020-09-04 09:40 | PM.PNGS ---
Subjective Subjective Date of Service: 09/04/20 Interval history: nasogastric tube appears to have come out of the stomach. Patient denies significant abdominal pain but also denies passing flatus or BM as of yet. She denies nausea or vomiting. NG tube was producing clear /pink tinged fluid which appears to be water and red lozenge for sore throat. Physical Exam Vital Signs: Vital Signs: Last Vital Signs Temp 96.9 F 09/04/20 07:37 Pulse 74 09/04/20 07:37 Resp 16 09/04/20 07:37 BP 141/72 H 09/04/20 07:37 Pulse Ox 98 09/04/20 07:37 Body Mass Index 46.1 Const: General: no acute distress, alert, awake and anxious Eyes: Sclerae: sclerae normal Resp: Other: Breathing comfortably on room air, no shortness of breath GI: Other: obese, soft, nontender, no rebound or guarding, easily reducible right-sided abdominal wall hernia without tenderness Skin: Other: warm, dry, no rash Extrem: Other: no pedal edema Progress Note: A&P Assessment and plan (1) SBO (small bowel obstruction): Status: Acute Assessment and Plan: patient does feel improved but is anxious about the nasogastric tube. The tube is no longer in a good position therefore was removed this morning. I recommended the patient remain NPO including no ice chips or water for the next 24 hours. If she does okay after 24 hours clear liquids will be started. She was encouraged to ambulate in the hallways of the nasogastric tube was removed. The patient expressed understanding and agrees with the plan. Fall Risk Details Current Medications: Current Medications Generic Name Dose Route Start Last Admin Trade Name Freq PRN Reason Stop Dose Admin Benzocaine 1 lozenge 09/02/20 16:19 09/04/20 00:26 Throat Lozenge, Medicated Lozenge MUCOUS MEM 1 lozenge Q2H PRN Administration Sore Throat Heparin Sodium (Porcine) 5,000 unit 09/02/20 07:45 09/04/20 07:56 Heparin Sodium,Porcine 5,000 Unit/Ml Vial SUBCUT 5,000 unit Q8H ALIYAH Administration Sodium Chloride 1,000 mls @ 100 mls/hr 09/02/20 08:00 09/04/20 05:00 Ns IVCONT Infused .Q10H ALIYAH Infusion Morphine Sulfate 3 mg 09/02/20 07:36 Morphine Sulfate 4 Mg/Ml Cartridge IVPUSH Q4H PRN Pain, Severe (Pain Scale 7-10) Ondansetron HCl 4 mg 09/02/20 07:33 09/02/20 08:59 Ondansetron Hcl 4 Mg/2 Ml Vial IVPUSH 4 mg Q8H PRN Administration Nausea and Vomiting Sodium Chloride 3 ml 09/02/20 08:00 09/04/20 07:59 0.9 % Sodium Chloride Flush 3 Ml Syringe IVFLUSH Not Given QSHIFT [facility] Time Spent With Patient Time: Total time spent is greater than 50% in coordination of care (as documented) at patient's floor/unit and/or counseling patient: Time with patient: 15 - 24 minutes Procedures Date of Service Date of Service: 09/04/20 Quality Stroke Does the patient have a stroke diagnosis?: No VTE Prior VTE?: No VTE Risk Level:: Medical - moderate - high VTE Device Contraindication: N/A - Device Ordered VTE Drug Contraindication: N/A - Med Ordered
[2020-09-04] MEDS: 0.9 % Sodium Chloride 1,000 ML 100 ML IVCONT ×2 (12:33→20:36)
[2020-09-04 14:58] VITALS: BP 138/71; PULSE 83; RESP 16; TEMP 36.1; O2SAT 99
--- NOTE | 2020-09-04 20:46 | PC.NURSE ---
patient reports passing flatus and burping
[2020-09-04] MEDS: ondansetron HCL 4 MG/2 ML VIAL IVPUSH (21:41)
--- NOTE | 2020-09-04 21:55 | PC.NURSE ---
P patient vomited 200 ml of yellowish greenish liquid I Zofran administered,Dr. Aburto notified E patiet will be NPO
[2020-09-04 23:31] VITALS: BP 140/72; PULSE 66; RESP 18; TEMP 36.3; O2SAT 100
[2020-09-05] MEDS: Heparin Sodium,Porcine 5,000 UNIT/ML VIAL 5000 UNIT SUBCUT (00:13)
--- NOTE | 2020-09-05 04:19 | PC.NURSE ---
PATIENT NOTED TO BE SITTING AT BED EDGE, STATED TO FEEL CRAMPY WITH GAS PAINS AND UPSET STOMACH. REPORTED TO BE PASSING FLATUS AND HAD SMALL LIQUID LIKE STOOL. HAD ENCOURAGED AMBULATION EARLIER AND PT DID WALK IN HALLWAY FOR SHORT DISTANCE. OFFERED TO CALL MD FOR NAUSEA MEDICINE ALDAIR NOT YET DUE, HOWEVER, PT BURPED SOME AND THEN VOMITED APPROX., 150ML YELLOW LIQUID EMESIS AT APPROX., 0310. PROVIDED WARM CLOTH TO CLEANSE FACE, MOUTH CARE, AMBULATED, CHANGED TO LARY PANTS FROM HER ELASTIC SLACKS, AND THEN SET UP RECLINER WITH PADDING. PLACED WARM BLANKET TO HER ABDOMEN AND AROUND HER SORE SHOULDERS FOR COMFORT. PATIENT STATED AT APPROX., 0355 TO FEEL BETTER, COLOR GOOD, IN RECLINER, AND HOPING TO BE ABLE TO NAP. WILL CONTINUE TO MONITOR CLOSELY. NPO MAINTAINED, IVF'S IN USE.
[2020-09-05] MEDS: 0.9 % Sodium Chloride 1,000 ML 100 ML IVCONT ×2 (06:12→18:01)
[2020-09-05 07:53] VITALS: BP 123/71; PULSE 96; RESP 18; TEMP 36.4; O2SAT 94
--- NOTE | 2020-09-05 08:27 | PM.PNGS ---
Subjective Subjective Date of Service: 09/05/20 Interval history: NG tube had been out since yesterday She feels much better Passing large amounts of flatus and BMs - watery Physical Exam Vital Signs: Vital Signs: Last Vital Signs Temp 97.6 F 09/05/20 07:53 Pulse 96 09/05/20 07:53 Resp 18 09/05/20 07:53 BP 123/71 09/05/20 07:53 Pulse Ox 94 09/05/20 07:53 Body Mass Index 46.1 Const: Other: Ambulating, looks well General: comfortable and no acute distress Resp: Effort & Inspection: normal respiratory effort Cardio: Rhythm: regular rhythm GI: Other: Obese abdomen Palpation (GI): Soft to palpation, not firm, nontender and no guarding Progress Note: A&P Assessment and plan (1) SBO (small bowel obstruction): Status: Acute Assessment and Plan: Now has good GI function Passing large amount flatus and BMs Will keep on clear liquids today and possibly advance later on as tolerated She looks well and comfortable She understands the plan Fall Risk Details Current Medications: Current Medications Generic Name Dose Route Start Last Admin Trade Name Freq PRN Reason Stop Dose Admin Benzocaine 1 lozenge 09/02/20 16:19 09/04/20 00:26 Throat Lozenge, Medicated Lozenge MUCOUS MEM 1 lozenge Q2H PRN Administration Sore Throat Heparin Sodium (Porcine) 5,000 unit 09/02/20 07:45 09/05/20 00:13 Heparin Sodium,Porcine 5,000 Unit/Ml Vial SUBCUT 5,000 unit Q8H ALIYAH Administration Morphine Sulfate 3 mg 09/02/20 07:36 Morphine Sulfate 4 Mg/Ml Cartridge IVPUSH Q4H PRN Pain, Severe (Pain Scale 7-10) Ondansetron HCl 4 mg 09/02/20 07:33 09/04/20 21:41 Ondansetron Hcl 4 Mg/2 Ml Vial IVPUSH 4 mg Q8H PRN Administration Nausea and Vomiting Sodium Chloride 3 ml 09/02/20 08:00 09/05/20 00:13 0.9 % Sodium Chloride Flush 3 Ml Syringe IVFLUSH Not Given QSHIFT [facility] Time Spent With Patient Time: Total time spent is greater than 50% in coordination of care (as documented) at patient's floor/unit and/or counseling patient: Time with patient: 15 - 24 minutes Procedures Date of Service Date of Service: 09/05/20 Quality Stroke Does the patient have a stroke diagnosis?: No VTE Prior VTE?: No VTE Risk Level:: Medical - moderate - high VTE Device Contraindication: N/A - Device Ordered VTE Drug Contraindication: N/A - Med Ordered
--- NOTE | 2020-09-05 13:46 | MHC.CM.PN ---
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
[2020-09-05 15:29] VITALS: BP 131/67; PULSE 69; RESP 16; TEMP 36.3; O2SAT 100
--- NOTE | 2020-09-05 16:02 | PC.NURSE ---
Skin assessment completed today. Pt. has redness under nasal area from NG tube. Petroleum jelly is being applied to area. No other skin issues noted.
[2020-09-05 23:29] VITALS: BP 134/61; PULSE 68; RESP 16; TEMP 36.1; O2SAT 97
[2020-09-06] MEDS: 0.9 % Sodium Chloride 1,000 ML 100 ML IVCONT (03:07)
[2020-09-06 07:20] VITALS: BP 119/58; PULSE 76; RESP 18; TEMP 35.6; O2SAT 98
--- NOTE | 2020-09-06 08:07 | PM.PNGS ---
Subjective Subjective Date of Service: 09/06/20 Interval history: feels great good BMs - loose; consistent flatus denies pain or nausea Physical Exam Vital Signs: Vital Signs: Last Vital Signs Temp 96.1 F L 09/06/20 07:20 Pulse 76 09/06/20 07:20 Resp 18 09/06/20 07:20 BP 119/58 L 09/06/20 07:20 Pulse Ox 98 09/06/20 07:20 Body Mass Index 46.1 Const: General: comfortable and no acute distress Resp: Effort & Inspection: normal respiratory effort Cardio: Rate: regular rate GI: Inspection: No distended Palpation (GI): Soft to palpation, not firm, nontender and no guarding Progress Note: A&P Assessment and plan (1) SBO (small bowel obstruction): Status: Acute Assessment and Plan: Symptoms have resolved Good GI functions Tolerating clear liquids well Wants to eat Diet as tolerated Appears completely asymptomatic and looks well Fall Risk Details Current Medications: Current Medications Generic Name Dose Route Start Last Admin Trade Name Freq PRN Reason Stop Dose Admin Benzocaine 1 lozenge 09/02/20 16:19 09/04/20 00:26 Throat Lozenge, Medicated Lozenge MUCOUS MEM 1 lozenge Q2H PRN Administration Sore Throat Heparin Sodium (Porcine) 5,000 unit 09/02/20 07:45 09/06/20 00:11 Heparin Sodium,Porcine 5,000 Unit/Ml Vial SUBCUT Not Given Q8H ALIYAH Sodium Chloride 1,000 mls @ 60 mls/hr 09/05/20 18:00 09/06/20 03:07 Ns IVCONT 100 mls/hr .[id number] ALIYAH Administration Morphine Sulfate 3 mg 09/02/20 07:36 Morphine Sulfate 4 Mg/Ml Cartridge IVPUSH Q4H PRN Pain, Severe (Pain Scale 7-10) Ondansetron HCl 4 mg 09/02/20 07:33 09/04/20 21:41 Ondansetron Hcl 4 Mg/2 Ml Vial IVPUSH 4 mg Q8H PRN Administration Nausea and Vomiting Sodium Chloride 3 ml 09/02/20 08:00 09/06/20 00:12 0.9 % Sodium Chloride Flush 3 Ml Syringe IVFLUSH Not Given QSHIFT [facility] Time Spent With Patient Time: Total time spent is greater than 50% in coordination of care (as documented) at patient's floor/unit and/or counseling patient: Time with patient: 15 - 24 minutes Procedures Date of Service Date of Service: 09/06/20 Quality Stroke Does the patient have a stroke diagnosis?: No VTE Prior VTE?: No VTE Risk Level:: Medical - moderate - high VTE Device Contraindication: N/A - Device Ordered VTE Drug Contraindication: N/A - Med Ordered
[2020-09-06 09:03] LABS: Hematocrit 32.9 % (37-47); Hemoglobin 11.2 g/dl (12.0-16.0); Mean Corpuscular Hemoglobin 34.1 pg (27.0-33.0); Mean Corpuscular Volume 100.3 fL (80-98); Mean Platelet Volume 9.4 fL (9.4-12.3); Platelet Count 283 X10*3/uL (160-400); Red Blood Count 3.28 X10*6/uL (4.20-5.50); Red Cell Distribution Width 14.3 % (11.0-16.0); White Blood Count 3.9 X10*3/uL (4.8-10.8)
[2020-09-06 09:25] LABS: Anion Gap 14 (12-20); Blood Urea Nitrogen 13 mg/dL (9-16); Calcium 8.7 mg/dL (8.4-10.2); Carbon Dioxide 28 mmol/L (22-29); Chloride 102 mmol/L (96-108); Creatinine Clr Calc Pharmacy 80.2; Estimated Glomerular Filt Rate > 60; Glucose Random 99 mg/dL (60-115); Potassium 3.5 mmol/L (3.3-5.1); Sodium 140 mmol/L (135-145)
--- NOTE | 2020-09-06 12:41 | MHC.CM.PN ---
NURSE ORTHOPAEDIC SURGEON NOTE PAtient has been advanced to regulaR DIET , CASE DISCUSSED WITH STAFF MADISYN AND ON MULTIPLE DISCIPLIARY ROUNDS , , ORTHOPAEDIC SURGEON TO CONTINUE TO FOLLOW DISCHARGE PLAN ANTICIPATE DISCHArge 1-2 days monitor diet advancement tolerance, and pain or nausea assessment home no services pcp cesar rios transportation patient has own transportation
[2020-09-06 15:25] VITALS: BP 130/70; PULSE 71; RESP 20; TEMP 36.8; O2SAT 99
[2020-09-06] MEDS: 0.9 % Sodium Chloride 1,000 ML 60 ML IVCONT (17:00)
[2020-09-07] VITALS: BP 148/70; PULSE 72; RESP 18; TEMP 36.7; O2SAT 97
[2020-09-07 07:47] VITALS: BP 133/67; PULSE 89; RESP 19; TEMP 36.2; O2SAT 96
[2020-09-07] MEDS: 0.9 % Sodium Chloride 1,000 ML 60 ML IVCONT (12:04)
--- NOTE | 2020-09-07 13:26 | MHC.CM.PN ---
NURSE CARE MANGER NOTE ELECTRONIC MEDICAL RECORD REVIEWED CASE DISCUSSED WITH STAFF NURSE PENDING IMAGING STUDIES RESULTS FROM TODAY CONTINUE TO MONITOR LABS , PAIN MANAGEMENT ASSESSMENT TOLERANCE MINISTERIO DIET ADVANCEMENT DISCHARGE PLAN HOME NO SERVICES PCP DR SHIRA HICKEY -PATIENT TO CALL FOR POST HOSPITAL DISCHARGE FOLLOW UP TRANSPORTATION FAMILY
[2020-09-07 15:31] VITALS: BP 146/96; PULSE 86; RESP 20; TEMP 36.3; O2SAT 98
--- NOTE | 2020-09-07 15:34 | PM.PNGS ---
Subjective Subjective Date of Service: 09/08/20 Interval history: She states she is passing flatus but vomited again last night. She says she had some vague low-density pain as well during that episode She feels that she was getting better but now some recurrence of symptoms She has not had any vomiting today. Physical Exam Vital Signs: Vital Signs: Last Vital Signs Temp 97.3 F 09/07/20 15:31 Pulse 86 09/07/20 15:31 Resp 20 09/07/20 15:31 BP 146/96 H 09/07/20 15:31 Pulse Ox 98 09/07/20 15:31 Body Mass Index 46.1 Const: Other: Obese General: comfortable and no acute distress Resp: Effort & Inspection: normal respiratory effort Cardio: Rhythm: regular rhythm GI: Other: Soft, obese, no tenderness, difficult to palpate hernia on the right side because of obesity Progress Note: A&P Assessment and plan (1) SBO (small bowel obstruction): Status: Acute Assessment and Plan: She feels that she has symptoms again as she had last week. I have ordered for a small bowel series She understands that if this shows point of obstruction, she will benefit from surgery. She otherwise has a very benign exam. She says she is still hungry and wants to continue to be able to eat She seems to be passing flatus as well in bowel movements Fall Risk Details Current Medications: Current Medications Generic Name Dose Route Start Last Admin Trade Name Freq PRN Reason Stop Dose Admin Benzocaine 1 lozenge 09/02/20 16:19 09/04/20 00:26 Throat Lozenge, Medicated Lozenge MUCOUS MEM 1 lozenge Q2H PRN Administration Sore Throat Heparin Sodium (Porcine) 5,000 unit 09/02/20 07:45 09/07/20 07:46 Heparin Sodium,Porcine 5,000 Unit/Ml Vial SUBCUT Not Given Q8H ALIYAH Sodium Chloride 1,000 mls @ 60 mls/hr 09/05/20 18:00 09/07/20 12:04 Ns IVCONT 60 mls/hr .[id number] ALIYAH Administration Ondansetron HCl 4 mg 09/02/20 07:33 09/04/20 21:41 Ondansetron Hcl 4 Mg/2 Ml Vial IVPUSH 4 mg Q8H PRN Administration Nausea and Vomiting Sodium Chloride 3 ml 06/18/21 08:00 09/07/20 09:22 0.9 % Sodium Chloride Flush 3 Ml Syringe IVFLUSH Not Given QSHIFT ALIYAH Time Spent With Patient Time: Total time spent is greater than 50% in coordination of care (as documented) at patient's floor/unit and/or counseling patient: Time with patient: 15 - 24 minutes Procedures Date of Service Date of Service: 09/08/20 Quality Stroke Does the patient have a stroke diagnosis?: No VTE Prior VTE?: No VTE Risk Level:: Medical - moderate - high VTE Device Contraindication: N/A - Device Ordered VTE Drug Contraindication: N/A - Med Ordered
[2020-09-07 23:23] VITALS: BP 136/86; PULSE 80; RESP 18; TEMP 36.3; O2SAT 96
[2020-09-08] MEDS: 0.9 % Sodium Chloride 1,000 ML 60 ML IVCONT (03:17)
[2020-09-08 07:24] VITALS: BP 140/70; PULSE 77; RESP 17; TEMP 36.5; O2SAT 98
[2020-09-08 07:53] LABS: Anion Gap 10 (12-20); Blood Urea Nitrogen 8 mg/dL (9-16); Calcium 8.3 mg/dL (8.4-10.2); Carbon Dioxide 28 mmol/L (22-29); Chloride 104 mmol/L (96-108); Creatinine Clr Calc Pharmacy 90.3; Estimated Glomerular Filt Rate > 60; Glucose Random 81 mg/dL (60-115); Potassium 3.3 mmol/L (3.3-5.1); Sodium 139 mmol/L (135-145)
--- NOTE | 2020-09-08 08:18 | PM.PNGS ---
Subjective Subjective Date of Service: 09/08/20 Interval history: Feels ?great? Says she had a good night Tolerating clears well Passing flatus and BMs Denies any pain or nausea Physical Exam Vital Signs: Vital Signs: Last Vital Signs Temp 97.7 F 09/08/20 07:24 Pulse 77 09/08/20 07:24 Resp 17 09/08/20 07:24 BP 140/70 H 09/08/20 07:24 Pulse Ox 98 09/08/20 07:24 Body Mass Index 46.1 Laboratory Results - last 24 hr 09/08/20 06:33 Sodium 139 Potassium 3.3 Chloride 104 Carbon Dioxide 28 Anion Gap 10 L BUN 8 L Creatinine 0.72 Estim Creat Clear Calc 90.3 Estimated GFR > 60 Random Glucose 81 Calcium 8.3 L Const: Other: Looks well General: comfortable and no acute distress Resp: Effort & Inspection: normal respiratory effort Cardio: Rhythm: regular rhythm GI: Other: Obese, soft, nontender Progress Note: A&P Assessment and plan (1) SBO (small bowel obstruction): Status: Acute Assessment and Plan: Small bowel series reviewed- delayed transit, probably from partial obstruction in bowel loops within hernia She states today that she feels ?great? Passing flatus and BMs Denies any pain Likely trial of full liquids later on today Patient stating that she would like to avoid surgery if possible Doing well so far Fall Risk Details Current Medications: Current Medications Generic Name Dose Route Start Last Admin Trade Name Freq PRN Reason Stop Dose Admin Benzocaine 1 lozenge 09/02/20 16:19 09/04/20 00:26 Throat Lozenge, Medicated Lozenge MUCOUS MEM 1 lozenge Q2H PRN Administration Sore Throat Heparin Sodium (Porcine) 5,000 unit 09/02/20 07:45 09/08/20 07:14 Heparin Sodium,Porcine 5,000 Unit/Ml Vial SUBCUT Not Given Q8H ALIYAH Sodium Chloride 1,000 mls @ 60 mls/hr 09/05/20 18:00 09/08/20 03:17 Ns IVCONT 60 mls/hr .[id number] ALIYAH Administration Ondansetron HCl 4 mg 09/02/20 07:33 09/04/20 21:41 Ondansetron Hcl 4 Mg/2 Ml Vial IVPUSH 4 mg Q8H PRN Administration Nausea and Vomiting Sodium Chloride 3 ml 09/02/20 08:00 09/08/20 07:14 0.9 % Sodium Chloride Flush 3 Ml Syringe IVFLUSH Not Given QSHIFT ALIYAH Time Spent With Patient Time: Total time spent is greater than 50% in coordination of care (as documented) at patient's floor/unit and/or counseling patient: Time with patient: 15 - 24 minutes Procedures Date of Service Date of Service: 09/08/20 Quality Stroke Does the patient have a stroke diagnosis?: No VTE Prior VTE?: No VTE Risk Level:: Medical - moderate - high VTE Device Contraindication: N/A - Device Ordered VTE Drug Contraindication: N/A - Med Ordered
[2020-09-08] MEDS: Potassium Chloride Packet 20 MEQ PACKET 40 MEQ PO (08:42)
[2020-09-08 15:36] VITALS: BP 156/82; PULSE 79; RESP 14; TEMP 36.4; O2SAT 97
[2020-09-08] MEDS: 0.9 % Sodium Chloride 1,000 ML 60 ML IV (20:47)
[2020-09-08 23:22] VITALS: BP 153/74; PULSE 86; RESP 18; TEMP 36.3; O2SAT 100
[2020-09-09 07:56] VITALS: BP 166/71; PULSE 80; RESP 18; TEMP 36.2; O2SAT 97
--- NOTE | 2020-09-09 09:02 | PM.PNGS ---
Subjective Subjective Date of Service: 09/09/20 Interval history: Feels well today Had a good night No nausea or vomiting Describes ?grumbling? of abdomen Has flatus Denies abdominal pain Physical Exam Vital Signs: Vital Signs: Last Vital Signs Temp 97.1 F 09/09/20 07:56 Pulse 80 09/09/20 07:56 Resp 18 09/09/20 07:56 BP 166/71 H 09/09/20 07:56 Pulse Ox 97 09/09/20 07:56 Body Mass Index 46.1 Const: Other: Looks well General: comfortable and no acute distress Resp: Effort & Inspection: normal respiratory effort GI: Other: Soft, obese, nontender, no guarding or rebound Progress Note: A&P Assessment and plan (1) SBO (small bowel obstruction): Status: Acute Assessment and Plan: Doing well Has flatus No abdominal pain or nausea Looks comfortable Full liquids today, slowly advance over the weekend as tolerated Patient understands plan Fall Risk Details Current Medications: Current Medications Generic Name Dose Route Start Last Admin Trade Name Freq PRN Reason Stop Dose Admin Benzocaine 1 lozenge 09/02/20 16:19 09/04/20 00:26 Throat Lozenge, Medicated Lozenge MUCOUS MEM 1 lozenge Q2H PRN Administration Sore Throat Heparin Sodium (Porcine) 5,000 unit 09/02/20 07:45 09/09/20 07:21 Heparin Sodium,Porcine 5,000 Unit/Ml Vial SUBCUT Not Given Q8H ALIYAH Sodium Chloride 1,000 mls @ 60 mls/hr 09/08/20 20:30 09/08/20 20:47 Ns IV 60 mls/hr .[id number] ALIYAH Administration Ondansetron HCl 4 mg 09/02/20 07:33 09/04/20 21:41 Ondansetron Hcl 4 Mg/2 Ml Vial IVPUSH 4 mg Q8H PRN Administration Nausea and Vomiting Sodium Chloride 3 ml 09/02/20 08:00 09/09/20 07:21 0.9 % Sodium Chloride Flush 3 Ml Syringe IVFLUSH Not Given QSHIFT ALIYAH Time Spent With Patient Time: Total time spent is greater than 50% in coordination of care (as documented) at patient's floor/unit and/or counseling patient: Time with patient: 15 - 24 minutes Procedures Date of Service Date of Service: 09/09/20 Quality Stroke Does the patient have a stroke diagnosis?: No VTE Prior VTE?: No VTE Risk Level:: Medical - moderate - high VTE Device Contraindication: N/A - Device Ordered VTE Drug Contraindication: N/A - Med Ordered
[2020-09-09] MEDS: 0.9 % Sodium Chloride 1,000 ML 60 ML IV (12:25)
--- NOTE | 2020-09-09 15:07 | MHC.CLN ---
NUTRITION FOLLOW UP HX OF SMALL BOWEL OBSTRUCTION. DIET ADVANCED TODAY TO FULL LIQUID DIET FROM CLEAR LIQUIDS. NO PRESSURE AREAS ON SKIN. NO NEW NUTRITION INTERVENTIONS AT THIS TIME.
[2020-09-09 15:19] VITALS: BP 157/81; PULSE 90; RESP 16; TEMP 36.4; O2SAT 97
[2020-09-09 19:11] VITALS: BP 125/58; PULSE 74; RESP 16; TEMP 36.1; O2SAT 97
[2020-09-09 23:27] VITALS: BP 161/87; PULSE 90; RESP 18; TEMP 36.6; O2SAT 95
[2020-09-10] MEDS: 0.9 % Sodium Chloride 1,000 ML 60 ML IV (04:03)
[2020-09-10 08:00] VITALS: BP 143/89; PULSE 83; RESP 18; TEMP 36.5; O2SAT 95
--- NOTE | 2020-09-10 13:03 | PM.PNGS ---
Subjective Subjective Date of Service: 09/10/20 Interval history: pt threw up once overnight not feeling nauseated now, passing little gas and little bits of stool not a good bowel movement though walking well Physical Exam Vital Signs: Vital Signs: Last Vital Signs Temp 97.7 F 09/10/20 08:00 Pulse 83 09/10/20 08:00 Resp 18 09/10/20 08:00 BP 143/89 H 09/10/20 08:00 Pulse Ox 95 09/10/20 08:00 Body Mass Index 46.1 Resp: Effort & Inspection: normal respiratory effort Auscultation: clear to auscultation bilaterally Cardio: Rate: regular rate Rhythm: regular rhythm GI: Other: abdo soft nontender obese, hernia mass noted right mid lateral abdomen nontender reducible when lying quiet bowel sounds now Progress Note: A&P Assessment and plan (1) SBO (small bowel obstruction): Status: Acute Assessment and Plan: pt is a 70 yo female with lateral abdo wall hernia - psbo continues cont wth clears and walking and check lytes in am hopeful that she will still open up some more she understands and agrees with the plan Fall Risk Details Current Medications: Current Medications Generic Name Dose Route Start Last Admin Trade Name Freq PRN Reason Stop Dose Admin Benzocaine 1 lozenge 09/02/20 16:19 09/04/20 00:26 Throat Lozenge, Medicated Lozenge MUCOUS MEM 1 lozenge Q2H PRN Administration Sore Throat Heparin Sodium (Porcine) 5,000 unit 09/02/20 07:45 09/10/20 07:46 Heparin Sodium,Porcine 5,000 Unit/Ml Vial SUBCUT Not Given Q8H ALIYAH Sodium Chloride 1,000 mls @ 60 mls/hr 09/08/20 20:30 09/10/20 04:03 Ns IV 60 mls/hr .[id number] ALIYAH Administration Ondansetron HCl 4 mg 09/02/20 07:33 09/04/20 21:41 Ondansetron Hcl 4 Mg/2 Ml Vial IVPUSH 4 mg Q8H PRN Administration Nausea and Vomiting Sodium Chloride 3 ml 09/02/20 08:00 09/10/20 07:07 0.9 % Sodium Chloride Flush 3 Ml Syringe IVFLUSH Not Given QSHIFT ALIYAH Time Spent With Patient Time: Total time spent is greater than 50% in coordination of care (as documented) at patient's floor/unit and/or counseling patient: Time with patient: 15 - 24 minutes Procedures Date of Service Date of Service: 09/10/20 Quality Stroke Does the patient have a stroke diagnosis?: No VTE Prior VTE?: No VTE Risk Level:: Medical - moderate - high VTE Device Contraindication: N/A - Device Ordered VTE Drug Contraindication: N/A - Med Ordered
[2020-09-10 15:45] VITALS: BP 132/70; PULSE 86; RESP 14; TEMP 36.3; O2SAT 95
[2020-09-10] MEDS: 0.9 % Sodium Chloride Flush 3 ML SYRINGE IVFLUSH (16:32)
[2020-09-11] VITALS: BP 146/65; PULSE 75; RESP 18; TEMP 36.5; O2SAT 97
[2020-09-11] MEDS: 0.9 % Sodium Chloride Flush 3 ML SYRINGE IVFLUSH ×3 (01:04→17:09)
[2020-09-11 07:01] LABS: Magnesium 1.9 mg/dL (1.6-2.6); Phosphorus 2.9 mg/dL (2.7-4.5)
[2020-09-11 07:02] LABS: Anion Gap 11 (12-20); Blood Urea Nitrogen 6 mg/dL (9-16); Calcium 8.7 mg/dL (8.4-10.2); Carbon Dioxide 29 mmol/L (22-29); Chloride 102 mmol/L (96-108); Creatinine Clr Calc Pharmacy 97.1; Estimated Glomerular Filt Rate > 60; Glucose Random 89 mg/dL (60-115); Potassium 3.4 mmol/L (3.3-5.1); Sodium 139 mmol/L (135-145)
[2020-09-11 07:47] VITALS: BP 150/67; PULSE 94; RESP 16; TEMP 36.6; O2SAT 95
--- NOTE | 2020-09-11 10:13 | PM.PNGS ---
Subjective Subjective Date of Service: 09/11/20 Interval history: pt feels much better passing gas and some stool, not as much cramping, comfortable, did eat a little this am complaining of feeling her legs and feet are very puffy Physical Exam Vital Signs: Vital Signs: Last Vital Signs Temp 97.8 F 09/11/20 07:47 Pulse 94 09/11/20 07:47 Resp 16 09/11/20 07:47 BP 150/67 H 09/11/20 07:47 Pulse Ox 95 09/11/20 07:47 Body Mass Index 46.1 Const: Other: nad Resp: Auscultation: clear to auscultation bilaterally Cardio: Rate: regular rate Rhythm: regular rhythm Heart sounds: S1 normal heart sound present and S2 normal heart sound present GI: Other: soft, obese nontender better bowel sounds Extrem: Other: 2+ edema Psych: Affect: normal affect Attitude: cooperative Thought process: Normal thought process present Thought content: Normal thought content present Progress Note: A&P Assessment and plan (1) SBO (small bowel obstruction): Status: Acute Assessment and Plan: pt with psbo doing better, adv diet slowly, pt active with ambulating, hernia not incarcerated, consider a little lasix for diuretics and some K replacement - fluids held since yesterday she understands and agrees with the plan Fall Risk Details Current Medications: Current Medications Generic Name Dose Route Start Last Admin Trade Name Freq PRN Reason Stop Dose Admin Benzocaine 1 lozenge 09/02/20 16:19 09/04/20 00:26 Throat Lozenge, Medicated Lozenge MUCOUS MEM 1 lozenge Q2H PRN Administration Sore Throat Heparin Sodium (Porcine) 5,000 unit 09/02/20 07:45 09/11/20 06:58 Heparin Sodium,Porcine 5,000 Unit/Ml Vial SUBCUT Not Given Q8H ALIYAH Sodium Chloride 1,000 mls @ 60 mls/hr 09/08/20 20:30 09/11/20 01:03 Ns IV Not Given .[id number] ALIYAH Ondansetron HCl 4 mg 09/02/20 07:33 09/04/20 21:41 Ondansetron Hcl 4 Mg/2 Ml Vial IVPUSH 4 mg Q8H PRN Administration Nausea and Vomiting Sodium Chloride 3 ml 09/02/20 08:00 09/11/20 09:59 0.9 % Sodium Chloride Flush 3 Ml Syringe IVFLUSH 3 ml QSHIFT ALIYAH Administration Time Spent With Patient Time: Total time spent is greater than 50% in coordination of care (as documented) at patient's floor/unit and/or counseling patient: Time with patient: 25 - 35 minutes Procedures Date of Service Date of Service: 09/11/20 Quality Stroke Does the patient have a stroke diagnosis?: No VTE Prior VTE?: No VTE Risk Level:: Medical - moderate - high VTE Device Contraindication: N/A - Device Ordered VTE Drug Contraindication: N/A - Med Ordered
[2020-09-11] MEDS: Furosemide 20 MG/2 ML VIAL 10 MG IVPUSH (10:29)
--- NOTE | 2020-09-11 10:41 | MHC.CM.PN ---
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
[2020-09-11 15:09] VITALS: BP 120/77; PULSE 84; RESP 16; TEMP 36.4; O2SAT 97
[2020-09-11 23:46] VITALS: BP 114/57; PULSE 83; RESP 18; TEMP 36; O2SAT 97
[2020-09-12 07:58] VITALS: BP 135/66; PULSE 85; RESP 16; TEMP 36.4; O2SAT 95
--- NOTE | 2020-09-12 08:07 | P.CDIC_ITS ---
CDI Concurrent Query Service Date: 09/12/20 Documentation Clarification: Please clarify if you are treating a proba ble/suspected/likely or confirmed: Based on the findings below, please provide a diagnosis for the Lasix administered and the low sodium Provider Response: Other ( Hypokalemia) Other Diagnosis: Sodium is actually within normal. Hypokalemia is mild, likely due to recent vomiting and loose stools. PLEASE DO NOT DELETE/MODIFY EXISTING CONTENT Additional information is needed in order to code to the highest accuracy and appropriate Severity of Illness (SOI). Please clarify the information noted below in your progress notes and discharge summary. Risk Factors/Clinical Indicators/Treatments 70 year old female admitted with nausea, vomiting, and abdominal pain NA 130, received IVF NS Per MD progress note of 09/11/20, 2+ edema, consider diuretics Lasix 10 mg IVP administered x1 CDS: Nayely Damon RN Contact Number: [phone] Please Review the information above and exercise your independent professional judgment in responding to the query. If you concur, pleas document in the PROGRESS NOTES and DISCHARGE SUMMARY. If you do not agree with the query, please document in the query above. THIS QUERY IS PART OF THE PERMANENT MEDICAL RECORD
[2020-09-12] MEDS: 0.9 % Sodium Chloride Flush 3 ML SYRINGE IVFLUSH ×2 (08:47→15:58)
--- NOTE | 2020-09-12 09:55 | PM.PNGS ---
Subjective Subjective Date of Service: 09/12/20 Interval history: feels well today says she has been passing plenty of flatus no pain or vomiting tolerating current diet well Physical Exam Vital Signs: Vital Signs: Last Vital Signs Temp 97.6 F 09/12/20 07:58 Pulse 85 09/12/20 07:58 Resp 16 09/12/20 07:58 BP 135/66 09/12/20 07:58 Pulse Ox 95 09/12/20 07:58 Body Mass Index 46.1 Const: General: comfortable and no acute distress Resp: Effort & Inspection: normal respiratory effort Cardio: Rate: regular rate GI: Palpation (GI): Soft to palpation, not firm, nontender and no guarding Progress Note: A&P Assessment and plan (1) SBO (small bowel obstruction): Status: Acute Assessment and Plan: doing well diet as tolerated exam benign she has been passing a lot of flatus she feels well overall with good GI function at this time Fall Risk Details Current Medications: Current Medications Generic Name Dose Route Start Last Admin Trade Name Freq PRN Reason Stop Dose Admin Benzocaine 1 lozenge 09/02/20 16:19 09/04/20 00:26 Throat Lozenge, Medicated Lozenge MUCOUS MEM 1 lozenge Q2H PRN Administration Sore Throat Heparin Sodium (Porcine) 5,000 unit 09/02/20 07:45 09/12/20 08:46 Heparin Sodium,Porcine 5,000 Unit/Ml Vial SUBCUT Not Given Q8H ALIYAH Ondansetron HCl 4 mg 09/02/20 07:33 09/04/20 21:41 Ondansetron Hcl 4 Mg/2 Ml Vial IVPUSH 4 mg Q8H PRN Administration Nausea and Vomiting Sodium Chloride 3 ml 09/02/20 08:00 09/12/20 08:47 0.9 % Sodium Chloride Flush 3 Ml Syringe IVFLUSH 3 ml QSHIFT ALIYAH Administration Time Spent With Patient Time: Total time spent is greater than 50% in coordination of care (as documented) at patient's floor/unit and/or counseling patient: Time with patient: 15 - 24 minutes Procedures Date of Service Date of Service: 09/12/20 Quality Stroke Does the patient have a stroke diagnosis?: No VTE Prior VTE?: No VTE Risk Level:: Medical - moderate - high VTE Device Contraindication: N/A - Device Ordered VTE Drug Contraindication: N/A - Med Ordered
[2020-09-12 15:21] VITALS: BP 167/72; RESP 16; O2SAT 97
[2020-09-12] MEDS: Docusate Sodium 100 MG CAPSULE PO (21:42)
[2020-09-12 23:58] VITALS: BP 139/65; PULSE 84; RESP 16; TEMP 36.1; O2SAT 97
[2020-09-13] MEDS: 0.9 % Sodium Chloride Flush 3 ML SYRINGE IVFLUSH (01:57)
[2020-09-13 07:40] VITALS: BP 106/48; PULSE 66; RESP 18; TEMP 36.2; O2SAT 97
[2020-09-13 08:02] LABS: Calcium, Ionized 4.9 mg/dL (4.8-5.6)
--- NOTE | 2020-09-13 10:01 | P.PNGS_ITS ---
Subjective Subjective Date of Service: 09/13/20 Interval history: continues to feel well denies pain no N/V good PO intake good flatus, BMs Physical Exam Vital Signs: Vital Signs: Last Vital Signs Temp 97.1 F 09/13/20 07:40 Pulse 66 09/13/20 07:40 Resp 18 09/13/20 07:40 BP 106/48 L 09/13/20 07:40 Pulse Ox 97 09/13/20 07:40 Body Mass Index 46.1 Const: General: comfortable and no acute distress Resp: Effort & Inspection: normal respiratory effort Cardio: Rate: regular rate GI: Other: obese, hernia difficult to feel Palpation (GI): Soft to palpation, Firmness to palpation present (GI) and Tenderness to palpation present (GI) Progress Note: A&P Assessment and plan (1) SBO (small bowel obstruction): Status: Acute Assessment and Plan: symptom resolved she has a complex, recurrent large hernia on right she states her son lives in [place], so she plans to see a specialist in [facility] for her hernia good GI function looks well she feels 'great ok to dc home Fall Risk Details Current Medications: Current Medications Generic Name Dose Route Start Last Admin Trade Name Freq PRN Reason Stop Dose Admin Benzocaine 1 lozenge 09/02/20 16:19 09/04/20 00:26 Throat Lozenge, Medicated Lozenge MUCOUS MEM 1 lozenge Q2H PRN Administration Sore Throat Docusate Sodium 100 mg 09/12/20 21:00 09/12/20 21:42 Docusate Sodium 100 Mg Capsule PO 100 mg BEDTIME ALIYAH Administration Heparin Sodium (Porcine) 5,000 unit 09/02/20 07:45 09/13/20 07:22 Heparin Sodium,Porcine 5,000 Unit/Ml Vial SUBCUT Not Given Q8H ALIYAH Ondansetron HCl 4 mg 09/02/20 07:33 09/04/20 21:41 Ondansetron Hcl 4 Mg/2 Ml Vial IVPUSH 4 mg Q8H PRN Administration Nausea and Vomiting Sodium Chloride 3 ml 09/02/20 08:00 09/13/20 01:57 0.9 % Sodium Chloride Flush 3 Ml Syringe IVFLUSH 3 ml QSHIFT ALIYAH Administration Time Spent With Patient Time: Total time spent is greater than 50% in coordination of care (as documented) at patient's floor/unit and/or counseling patient: Time with patient: 15 - 24 minutes Procedures Date of Service Date of Service: 09/13/20 Quality Stroke Does the patient have a stroke diagnosis?: No VTE Prior VTE?: No VTE Risk Level:: Medical - moderate - high VTE Device Contraindication: N/A - Device Ordered VTE Drug Contraindication: N/A - Med Ordered
--- NOTE | 2020-09-14 11:21 | PM.DS ---
DS: Providers Provider Date of Service: 09/12/20 Date of admission: 09/02/20 07:34 Primary care physician: Osmar Iglesias MD DS: Diagnosis Discharge Diagnosis (1) SBO (small bowel obstruction): Status: Acute Problem details: 70-year-old female who was admitted via the emergency room because of 1 week history of vomiting at home. Her CAT scan had shown a large hernia on the right side of the abdomen with bowel loops. There was note of a transition point within this hernia but it did not appear to be secondary to the fascial defect itself. This did not appear to be from acute incarceration. An NG tube was therefore placed in she was kept NPO. She did not have any significant pain thereafter. He improved significantly and her NG tube was removed on her hospital day 2. She was started on clear liquids and this was advanced. However, on her hospital day number 4, she said she felt bloated and I ordered for a small bowel series which showed slow transit on the area of the hernia but the small intestine itself was patent. She was then restarted on clear liquids and this was slowly advanced. She continued to tolerate this or though very slowly. She did not have any vomiting or nausea during her hospital stay. She had better bowel movements and flatus. She was eventually discharged on September 12, 2020. At the time of her discharge, she was tolerating regular diet and had good bowel movements. She did have a large hernia and right upper abdomen and this is recurrent. Her previous repair was in 2006. she stated that her son lives and [place] and she was interested in seeing a hernia specialist in [email or web address] for this. DS: Medications Discharge Medications Home Medications: Home Medications Medication Instructions Recorded Confirmed Ibrance 100 mg PO DAILY 09/02/20 09/02/20 letrozole 2.5 mg PO DAILY 09/02/20 09/02/20 Previous Rx's Medication Instructions Recorded docusate sodium 100 mg PO BEDTIME #30 cap 09/13/20 DS: Summary Time Spent with Patient Time attestation: Total time spent providing and/or coordinating discharge services: Discharge coordination time: Greater than 30 minutes Quality: Stroke Does the patient have a stroke diagnosis?: No Physical Exam Vital Signs: Vital Signs: Last Vital Signs Temp 97.1 F 09/13/20 07:40 Pulse 66 09/13/20 07:40 Resp 18 09/13/20 07:40 BP 106/48 L 09/13/20 07:40 Pulse Ox 97 09/13/20 07:40 Body Mass Index 46.1 Const: Other: Morbidly obese General: comfortable and no acute distress Orientation/consciousness: patient oriented x3 Neck: Neck: Yes no lymphadenopathy Resp: Auscultation: clear to auscultation bilaterally Cardio: Rhythm: regular rhythm GI: Other: hernia difficult to palpate in view of her morbid obesity Palpation (GI): Soft to palpation, nontender and no guarding Neuro: General: patient oriented x3 DS: Data Data Completed and Pending Completed studies during hospitalization [Text1]: CT scan of the abdomen pelvis small bowel series Discharge Plan Discharge Patient Disposition: Home, Self-Care Discharge Diagnosis: partial small bowel obstruction Referrals: Rod Thapa MD [Physician] - 1 Week Osmar Iglesias MD [Primary Care Provider] - 1 Week Discharge Medications: New docusate sodium 100 mg Capsule 100 mg PO BEDTIME Qty: 30 RF: 2 Continued letrozole 2.5 mg Tablet 2.5 mg PO DAILY RF: 0 Ibrance 100 mg Capsule 100 mg PO DAILY RF: 0 Discharge Orders: Discharge Order (Routine); Ordered 09/13/20 Ordered By: Rod Thapa Diet: advance to usual diet Activity on Discharge: As tolerated Stand Alone Forms: Patient Portal Discharge page Care Plan Goals: monitor ventral hernia Health Concerns: recurrent ventral hernia Plan of Treatment: monitor ventral hernia Assessment: doing well, good GI function Discharge Date/Time: 09/13/20 11:27
== END 2020-09-13 11:27 | disposition home or self-care (01) | DRG 390 ==
LOC: HO.ED 05:18 → HO.IMC 07:49 → HO.S3 18:18
PROVIDERS: Surgery; Admitting Provider Surgery; Emergency Provider Student in an Organized Health Care Education/Training Program; PCP Family Medicine; Visit Provider Surgery
DX: K56.609 Unspecified intestinal obstruction, unspecified as to partial versus complete obstruction (principal); K46.9 Unspecified abdominal hernia without obstruction or gangrene; Z20.822 Contact with and (suspected) exposure to COVID-19; E86.0 Dehydration; Z79.899 Other long term (current) drug therapy
CPT/HCPCS: 36415; 71045; 74018; 74177; 74250; 80048; 80053; 81001; 82330; 83690; 83735; 84100; 85007; 85025; 85027; 87635; 93005; 99232; 99285; J1940; J2405; Q9967

== ENCOUNTER → 2020-09-21 13:28 | Outpatient (BNVA) | payer MEDICARE, SELFPAY | PROVIDERS: PCP Family Medicine; Visit Provider Surgery | DX: K56.600 Partial intestinal obstruction, unspecified as to cause (principal); K43.2 Incisional hernia without obstruction or gangrene | CPT/HCPCS: 99212 ==

== ENCOUNTER → 2021-11-13 09:43 | Outpatient (REF) | payer MEDICARE, SELFPAY ==
--- NOTE | ~2021-11-13 | NM_ITS ---
EXAMINATION: NM BONE SCAN OF THE WHOLE BODY CLINICAL INFORMATION: Breast cancer. Patient states bilateral foot pain, right middle finger pain, bilateral MAINOR 2008. COMPARISON: No previous bone scan is available for comparison. A radiograph of the chest dated 09/02/2020 is the most recent radiograph available for comparison. TECHNIQUE: Multiple gamma scintillation camera images of the whole body were performed 3 hours following the intravenous administration of 42 mCi Tc-99m MDP. FINDINGS: In the head, no significant abnormalities are present. In the thoracic cage and upper extremities, there is mildly increased activity in the distal interphalangeal joint region of the third digit of the right hand and in the left first carpometacarpal joint. Multiple additional very faint periarticular foci are present in both hands. In the spine, a minimal thoracolumbar scoliosis is present with lower lumbar convexity to the left. There are no foci of abnormal activity in the spine. In the pelvis, no significant abnormalities are present. In the lower extremities, there is diffusely increased activity without a focal component in both ankles and in the proximal aspects of both feet and in the patellae bilaterally. Very minimally increased activity in the medial compartment of both knees is also visualized. Photopenic defects from bilateral total hip prostheses are noted. No other definite bony abnormalities are noted. The urinary bladder and faint visualization of both kidneys are noted. NM/NM bone scan whole body IMPRESSION: Mild nonspecific abnormalities are noted as described above and these are all likely arthritic or traumatic in etiology. None of these abnormalities is strongly suspicious for metastatic disease.
== END ==
LOC: HO.NUCMED 09:43
PROVIDERS: PCP Family Medicine; Visit Provider Nurse Practitioner Adult Health
DX: C50.919 Malignant neoplasm of unspecified site of unspecified female breast (principal)
CPT/HCPCS: 78306; A9503

== ENCOUNTER 2021-12-26 14:24 | Outpatient (REF) | payer MEDICARE, SELFPAY ==
--- NOTE | ~2021-12-26 | US_ITS ---
EXAMINATION: ULTRASOUND EXTREMITY NONVASCULAR CLINICAL INFORMATION: Right posterior knee swelling. Rule out Haro's cyst. COMPARISON: None TECHNIQUE: Grayscale imaging of the soft tissues of the right knee in the popliteal fossa FINDINGS: There is a small Haro's cyst measuring 1.8 x 0.5 x 0.5 cm. There is a joint effusion. US/US extremity nonvascular IMPRESSION: Joint effusion and small Haro's cyst.
== END 2021-12-26 14:25 | disposition home or self-care (01) ==
LOC: HO.US 14:24
PROVIDERS: Visit Provider Family Medicine
DX: R22.41 Localized swelling, mass and lump, right lower limb (principal); M71.20 Synovial cyst of popliteal space [Baker], unspecified knee
CPT/HCPCS: 76882

== ENCOUNTER → 2022-08-27 10:54 | Outpatient (REF) | payer MEDICARE, SELFPAY ==
--- NOTE | ~2022-08-27 | NM_ITS ---
EXAMINATION: WI BONE SCAN OF THE WHOLE BODY CLINICAL INFORMATION: Breast cancer compared to previous. COMPARISON: The previous bone scan dated 11/13/2021 is available for comparison. No recent radiographs are available for comparison. TECHNIQUE: Multiple gamma scintillation camera images of the whole body were performed 2 hours following the intravenous administration of 40 mCi Tc-99m MDP. FINDINGS: In the head, no significant abnormalities are present. In the thoracic cage and upper extremities, there is also foci of mildly increased activity in the left wrist and probably a few additional periarticular foci of increased activity are present in the right hand and wrist. In the spine, no significant abnormalities are present. In the pelvis, no significant abnormalities are present. In the lower extremities, there is minimally increased activity in the patellar compartments of both knees and in the medial compartment of the right knee. There is mildly increased activity laterally in the mid left foot and less prominently, laterally in the mid right foot. There is a mild diffuse increase in activity in the ankles and proximal feet bilaterally. There is minimally increased activity in the right first metatarsophalangeal joint region. Photopenic defects from bilateral total hip prostheses are noted. No other definite bony abnormalities are noted. The urinary bladder and faint visualization of both kidneys are noted. Compared to the previous bone scan dated 11/13/2021, there has not been a significant change. WI/WI bone scan whole body IMPRESSION: Mild nonspecific abnormalities are noted as described above and these are all likely arthritic or traumatic in etiology. None of these abnormalities is strongly suspicious for metastatic disease.
== END ==
LOC: HO.NUCMED 10:54
PROVIDERS: PCP Family Medicine; Visit Provider Internal Medicine Hematology
DX: C50.919 Malignant neoplasm of unspecified site of unspecified female breast (principal)
CPT/HCPCS: 78306; A9503

== ENCOUNTER → 2023-04-17 09:34 | Outpatient (REF) | payer MEDICARE, SELFPAY ==
--- NOTE | ~2023-04-17 | NM_ITS ---
EXAMINATION: NM BONE SCAN OF THE WHOLE BODY CLINICAL INFORMATION: History of breast cancer. For follow-up. COMPARISON: Most recent prior whole-body bone scan done on 08/27/2022 and baseline bone scan done on 11/13/2021. Available CT scan of the abdomen and pelvis done on 09/02/2020 is also reviewed. TECHNIQUE: Multiple gamma scintillation camera images of the whole body were performed 3 hours following the intravenous administration of 40 mCi Tc-99m MDP. The radiotracer was injected through right antecubital superficial vein without complications. FINDINGS: In the head, no suspicious focal disease. In the thoracic cage and upper extremities, no suspicious focal disease. In the spine, no suspicious focal disease. In the pelvis, no suspicious focal disease. In the lower extremities, periarticular increased tracer avidity around both knees and both feet likely represent nonspecific arthritic and/or posttraumatic changes. No other definite bony abnormalities are noted. The urinary bladder and faint visualization of both kidneys are noted. Overall, no significant change since prior studies dated 11/13/2021 and 08/27/2022. NM/NM bone scan whole body IMPRESSION: No scintigraphic evidence of osseous metastasis, appear stable since the baseline bone scan dated 11/13/2021.
== END ==
LOC: HO.NUCMED 09:34
PROVIDERS: PCP Family Medicine; Visit Provider Internal Medicine Hematology
DX: C50.919 Malignant neoplasm of unspecified site of unspecified female breast (principal)
CPT/HCPCS: 78306; A9503

== ENCOUNTER 2023-06-10 12:08 | Outpatient (REF) | payer MEDICARE, SELFPAY ==
--- NOTE | ~2023-06-10 | XR_ITS ---
EXAMINATION: XR SHOULDER, RIGHT CLINICAL INFORMATION: Pain. COMPARISON: Radiographs dated 09/11/2017. TECHNIQUE: AP external rotation, Grashey, scapular Y, and axillary views of the right shoulder. FINDINGS: There is bony demineralization. The glenohumeral joint is intact. The acromioclavicular and coracoclavicular intervals are normal. There is mild osteoarthritic change of the acromioclavicular joint. There is a small distal acromial undersurface osteophyte, and there is cortical irregularity of the greater tuberosity of the proximal right humerus. No fracture or dislocation is seen. There is no soft tissue calcification or foreign body. No right pneumothorax is seen. There are right axillary surgical clips. XR/XR shoulder RT min 2V IMPRESSION: 1. There is mild osteoarthritic change of the right acromioclavicular joint. 2. Findings suggest possible right rotator cuff impingement, without josie calcific tendinitis noted.
--- NOTE | ~2023-06-10 | XR_ITS ---
EXAMINATION: XR SHOULDER, LEFT CLINICAL INFORMATION: Pain. COMPARISON: Radiographs dated 09/28/2018. TECHNIQUE: AP external rotation, Grashey, scapular Y, and axillary views of the left shoulder. FINDINGS: There is mild bony demineralization. The glenohumeral joint is intact and shows moderately severe osteoarthritic change. The acromioclavicular and coracoclavicular intervals are normal. There is cortical irregularity of the greater tuberosity of the proximal left humerus. No fracture or dislocation is seen. There are no unusual soft tissue calcifications. Left axillary surgical clips are seen. There is no left pneumothorax. XR/XR shoulder LT min 2V IMPRESSION: 1. There is moderately severe osteoarthritic change of the left glenohumeral joint. 2. No fracture or dislocation is seen. 3. Findings suggest left rotator cuff impingement, without josie calcific tendinitis noted.
== END 2023-06-10 12:09 | disposition home or self-care (01) ==
LOC: HO.XRAY 12:08
PROVIDERS: PCP Family Medicine; Visit Provider Family Medicine
DX: M25.511 Pain in right shoulder (principal); M25.512 Pain in left shoulder
CPT/HCPCS: 73030

== ENCOUNTER → 2023-10-17 10:03 | Outpatient (REF) | payer MEDICARE, SELFPAY ==
--- NOTE | ~2023-10-17 | NM_ITS ---
EXAMINATION: NM BONE SCAN OF THE WHOLE BODY CLINICAL INFORMATION: Metastatic breast cancer, follow-up. COMPARISON: Several previous bone scans are available for comparison, the most recent dated 04/17/2023. Radiographs of the bilateral shoulders dated 06/10/2023 are available for comparison. No other recent radiographs are available for comparison. TECHNIQUE: Multiple gamma scintillation camera images of the whole body were performed 3 hours following the intravenous administration of 40 mCi Tc-99m MDP. FINDINGS: In the head, no significant abnormalities are present. In the thoracic cage and upper extremities, there is mildly increased activity in the glenohumeral and acromioclavicular joints bilaterally and in a small mild subacromial focus in the lateral aspect of the right humeral head. Multiple mild periarticular foci of increased activity are present in both hands and wrists. In the spine, a minimal thoracolumbar scoliosis with lumbar convexity to the left is visualized. There is very minimally increased activity in a small focus in the upper thoracic spine at the T3-T4 level. There is a small focus of mildly increased activity in the left posterior elements of the mid cervical spine, likely due to facet arthropathy. In the pelvis, no significant abnormalities are present. In the lower extremities, there is mildly increased activity in the patellar compartments of both knees and laterally in the mid feet bilaterally. Is also a mild diffuse increase in activity in both ankles. Faintly increased activity in the right first metatarsophalangeal joint is also noted. No other definite bony abnormalities are noted. The urinary bladder and faint visualization of both kidneys are noted. Compared to the previous bone scan dated 04/17/2023, there has not been a significant change. Radiographs of the left shoulder dated 06/10/2023 show moderately severe degenerative changes in the left glenohumeral articulation that correspond well to bone scan abnormalities described above. NM/NM bone scan whole body IMPRESSION: Stable mild nonspecific abnormalities are noted as described above and these are all likely arthritic or traumatic in etiology. None of these abnormalities is strongly suspicious for metastatic disease.
== END ==
LOC: HO.NUCMED 10:03
PROVIDERS: PCP Family Medicine; Visit Provider Internal Medicine Hematology
DX: C71.9 Malignant neoplasm of brain, unspecified (principal)
CPT/HCPCS: 78306; A9503

== ENCOUNTER 2024-07-16 10:08 | Outpatient (REF) | payer MEDICARE, SELFPAY ==
--- NOTE | ~2024-07-16 | XR_ITS ---
EXAMINATION: XR SHOULDER 2 OR MORE VIEWS BILATERAL HISTORY: BILATERAL SHOULDER PAIN COMPARISON: Comparison is made with the prior examination dated 06/10/2023. FINDINGS: Nine views of the bilateral shoulders are submitted. Osseous mineralization is normal. There is no fracture or dislocation. On the right, there is moderate osteoarthritis of the glenohumeral joint with joint space narrowing. Findings have progressed since the prior study. Again seen is moderate osteoarthritis of the AC joint. On the left, again seen is severe osteoarthritis of the glenohumeral joint with joint space narrowing and osteophyte formation. There has been mild progression of findings with greater subchondral cyst formation in the humeral head and glenoid. Again seen is moderate osteoarthritis of the AC joint. No abnormal soft tissue calcifications are identified. There are surgical clips in the left axilla. XR/XR Shoulder Rafael min 2V IMPRESSION: Osteoarthritis of both shoulders as described. There has been progression of findings since the prior study. Electronically signed by: Sly Salter MD 07/16/2024 11:26 AM EDT
== END 2024-07-16 10:09 | disposition home or self-care (01) ==
LOC: HO.XRAY 10:08
PROVIDERS: PCP Family Medicine; Visit Provider Family Medicine
DX: M25.511 Pain in right shoulder (principal); M25.512 Pain in left shoulder
CPT/HCPCS: 73030

== ENCOUNTER → 2024-07-16 10:15 | Outpatient (BNV) | payer MEDICARE, SELFPAY | PROVIDERS: PCP Family Medicine; Visit Provider Radiology Diagnostic Radiology | DX: M19.011 Primary osteoarthritis, right shoulder (principal); M19.012 Primary osteoarthritis, left shoulder | CPT/HCPCS: 73030 ==

== ENCOUNTER 2024-08-06 11:13 | Outpatient (RCR) | payer MEDICARE, SELFPAY ==
--- NOTE | 2024-08-06 16:32 | MHC.PT.EP ---
[facility] [place] Office [place] Office [place] Office [address] Katelyn Barahona [address] [phone] F: [phone] F: [phone] F: [phone] F: [phone] Physical Therapy Plan of Care Date of Evaluation: 08/06/24 Date of Surgery: Diagnosis: bilateral shoulder pain (MD Dx) X-ray; osteoarthritis (mod on R , severe on L) (PT Dx) RS Assessment: Imani is a pleasant 74 y.o. female who is referred to PT by Dr. Osmar Iglesias MD with Dx of bilateral shoulder pain. 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 Patient impairments include pain, poor posture, limited bilat shoulder ROM, weakness bilateral shoulders. 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 Patient will benefit from skilled PT to address aforementioned impairments and functional limitations to meet established goals. Frequency and Duration: The patient will be seen 2x/week for 4 weeks Short Term Goals: 2 weeks Patient demonstrates consistency and independence with HEP to self manage symptoms. Transport Nurse Goals: 4 weeks Patient presents with increased bilateral shoulder flexion 115 degrees to be able to wash her hair. Patient presents with increased bilateral shoulder ER ROM 30 deg to improve upper body dressing. Treatment Plan: Modalities to reduce pain, spasms and effusion. Manual therapy to restore motion and function. Therapeutic exercise to improve strength and flexibility. Neuromuscular re-education for posture and balance. Therapeutic activities to return to functional activities of daily living. Electronically signed by: Emily Veliz, PT, DPT Please sign and return to therapist. Thank you for your referral.
--- NOTE | 2024-09-08 15:46 | MHC.PT.DC ---
[facility] [place] Office [place] Office [place] Office [address] Katelyn Barahona [address] [phone] F: [phone] F: [phone] F: [phone] F: [phone] Physical Therapy Discharge Report Diagnosis: bilateral shoulder pain (MD Dx) X-ray; osteoarthritis (mod on R , severe on L) (PT Dx) RS Date of Surgery: Date of Evaluation: 08/06/24 Date of Discharge: 09/08/24 Treatments to Date: 1 Cancellations to Date: 8 No Shows to Date: 0 Discharge Status: Patient Elected to Stop Recommend MD Follow-up Discharge Summary: Imani presented with moderate to severe OA in bilateral shoulder/GHJ. Initial evulation was performed on 08/06/24 and ROM and strength measurements were taken. She was shown HEP involving equipment she can use at home and in more neutral shoulder positions. 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 She called a couple days after evaluation and I spoke with her at length as she reported significant increase in pain in both shoulders after evaluation due to evaluation and exercises. She debated going to the ER, she called her PCP to discuss pain control options and was awaiting a return call. I let her know that she can come for a FUP PT session and trial use of TENS unit to shoulders to help with pain control and reduce her higher pain levels. She ended up cancelling and not wanting to attend any FUP sessions. I encouraged her to FUP with her doctor then and cease any exercises or activites that increase her pain. Electronically signed by: Emily Veliz, PT, DPT Please sign and return to therapist. Thank you for your referral.
--- NOTE | 2024-09-08 15:47 | MHC.PT.DC ---
[facility] [place] [facility] [place] [facility] [place] [facility] [address] Katelyn Barahona [address] [phone] F: [phone] F: [phone] F: [phone] F: [phone] Physical Therapy Discharge Report Diagnosis: bilateral shoulder pain (MD Dx) X-ray; osteoarthritis (mod on R , severe on L) (PT Dx) RS Date of Surgery: Date of Evaluation: 08/06/24 Date of Discharge: 09/08/24 Treatments to Date: 1 Cancellations to Date: 8 No Shows to Date: 0 Discharge Status: Patient Elected to Stop Recommend MD Follow-up Discharge Summary: Imani presented with moderate to severe OA in bilateral shoulder/GHJ. Initial evulation was performed on 08/06/24 and ROM and strength measurements were taken. She was shown HEP involving equipment she can use at home and in more neutral shoulder positions. 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 She called a couple days after evaluation and I spoke with her at length as she reported significant increase in pain in both shoulders after evaluation due to evaluation and exercises. She debated going to the ER, she called her PCP to discuss pain control options and was awaiting a return call. I let her know that she can come for a FUP PT session and trial use of TENS unit to shoulders to help with pain control and reduce her higher pain levels. She ended up cancelling and not wanting to attend any FUP sessions. I encouraged her to FUP with her doctor then and cease any exercises or activites that increase her pain. Electronically signed by: Emily Veliz, PT, DPT Please sign and return to therapist. Thank you for your referral.
== END 2024-09-08 15:47 | disposition home or self-care (01) ==
LOC: HO.PT 11:13
PROVIDERS: PCP Family Medicine; Visit Provider Family Medicine
DX: M25.511 Pain in right shoulder (principal); M25.512 Pain in left shoulder
CPT/HCPCS: 97110; 97162

== ENCOUNTER 2024-12-07 11:28 | Outpatient (AMB) | payer MEDICARE, SELFPAY ==
--- NOTE | 2024-12-07 11:29 | A.OFFPC_ITS ---
Vital Signs 12/07/24 11:35 Height 5 ft 3 in Weight 275 lb BMI 48.7 BP not taken reason Patient Refused Respiration 18 Pulse 84 Pulse Source Pulse Oximeter Temp 97.5 F Temp Source Temporal Artery Scan Pulse Oximetry (%) 98 Oxygen Delivery Method Room Air Intake Visit Reasons: routine - Iglesias pt. - see comments Pet Care Associate Required: No Accompanied by: Self / Same As Patient Allergies No Known Allergies Allergy (Unknown, Verified 12/07/24 11:29) Medication List - Last Reconciled 12/07/24 by BERTHA Weaver celecoxib (Celebrex) 100 mg PO BID gabapentin 100 mg PO BEDTIME letrozole 2.5 mg PO DAILY multivitamin 1 tab PO DAILY palbociclib (Ibrance) mg PO Tobacco use date assessed: 12/07/24 Fall risk assessment: No Falls in past year Last assessed Fall Risk: 12/07/24 Dental Screening Dental Screen Date: 12/07/24 Did you have a dental visit in the last 12 months?: Yes Did you have a dental problem in the last 6 months where you did not have access to dental care?: No Was dental information given to patient?: Patient has dentist HPI HPI Comments History of Present Illness Details The patient is a 74-year-old female with history of breast cancer, bilateral shoulder pain and obesity presenting with severe osteoarthritis and associated pain. She reports significant shoulder pain worsening over the past eight months, with x-rays confirming osteoarthritis characterized by ikpw-ok-oeww contact. The pain severely limits her arm movement, affecting daily activities such as grooming and reaching. Various interventions have been attempted, including physical therapy and cortisone injections, with limited success. Physical therapy was discontinued due to increased pain, and cortisone injections provided only temporary relief. Persistent pain disrupts her sleep, necessitating sleeping in a recliner. She was given Mobic by [facility]. She took it for about 4 days but stopped because it was not helping. Patient is overdue for PAP, Mammogram and colon cancer screening. She does not want to address this at this time. Patient refused to have BP checked today. The patient has a history of breast cancer, currently under follow-up at a cancer center, with a CT scan scheduled for the chest and abdomen. Patient was informed and verbally consented to the use of an ambient scribe for clinic note documentation during this visit. [facility] Medical History (Updated 12/07/24 @ 14:55 by BERTHA Weaver) Bilateral shoulder pain Breast cancer History of breast cancer Morbid obesity Partial small bowel obstruction Recurrent ventral hernia Surgical History (Updated 12/04/24 @ 15:38 by Linda Gann) H/O hernia repair Hip joint replacement status History of colonoscopy (~07/31/13) Family History Father Throat cancer Brother Throat cancer Mother Breast cancer Social History Household Members: None Housing: Other Housing Other:: COOP Do you presently have visiting nurse or other home services: No Alcohol intake: never Patient Tobacco Use Status: Never used Tobacco e-Cigarette/Vaping Use: Never Used service: No Current occupational status: retired Questionnaire PHQ-9 Over the last 2 weeks, how often have you been bothered by any of the following problems? 1. Little interest or pleasure in doing things: not at all 2. Feeling down, depressed, or hopeless: several days 3. Trouble falling or staying asleep, or sleeping too much: not at all 4. Feeling tired or having little energy: not at all 5. Poor appetite or overeating: not at all 6. Feeling bad about yourself - or that you are a failure or have let yourself or your family down: not at all 7. Trouble concentrating on things, such as reading the newspaper or watching television: not at all 8. Moving or speaking so slowly that other people could have noticed. Or the opposite - being so fidgety or restless that you have been moving around a lot more than usual: not at all 9. Thoughts that you would be better off or of hurting yourself in some way: not at all Total score: 1 Source: Developed by Drs. Sly Bean, Chiara Puente, Jovi Aguilera and colleagues, with an educational bharath from [employer]. Thrive Questionnaire Date Thrive assessed: 12/07/24 I am a: Patient What is your living situation today?: I have a steady place to live Within the past 12 months, did the food you bought not last and you didn't have the money to get more?: Never true Within the past 12 months, did you worry whether your food would run out before you got money to buy more?: Never true Do you have trouble paying for medicines?: No Do you have trouble getting transportation to medical appointments?: No Do you have trouble paying your heating and electricity bill?: No Do you have trouble taking care of your child, family member or friend?: No Do you have trouble with day-to-day activities such as bathing, preparing meals, shopping, managing finances, etc.?: No Are you currently unemployed and looking for a job?: No Are you interested in more education?: No THRIVE Score: 0 AUDIT C Alcohol Use Questionnaire (AUDIT-C) 1. How often do you have a drink containing alcohol?: Never 3. How often do you have six or more drinks on one occasion?: Never Total Score: 0 DANAY-7 AMB Questionnaire DANAY-7 Date DANAY - 7 assessed: 12/07/24 Feeling nervous, anxious, or on edge: 0 = Not at all Not being able to stop or control worryin = Not at all Worrying too much about different things: 0 = Not at all Trouble relaxin = Not at all Being so restless that it is hard to sit still: 0 = Not at all Becoming easily annoyed or irritable: 0 = Not at all Feeling afraid as if something awful might happen: 0 = Not at all Total DANAY-7 score (0-4 normal; 5-9 mild; 10-14 moderate; 15-21 severe): 0 Source: Developed by Drs. Sly Bean, Chiara Puente, Jovi Aguilera and colleagues, with an educational bharath from [employer]. Review of Systems Const Details: CONSTITUTIONAL No weight loss HEAD/NECK Negative RESPIRATORY Negative CARDIOVASCULAR Negative MUSCULOSKELETAL Reports severe shoulder pain, limited range of motion, and inability to perform daily activities NEUROLOGICAL Negative PSYCHIATRIC Reports disrupted sleep due to pain Physical exam (Primary Care) Vital Signs: Last Vital Signs Temp 97.5 F 12/07/24 11:35 Pulse 84 12/07/24 11:35 Resp 18 12/07/24 11:35 Pulse Ox 98 12/07/24 11:35 Oxygen Delivery Method Room Air 12/07/24 11:35 BMI result Body Mass Index 48.7 GENERAL Well developed, obese, in no apparent distress HEENT Head-Normocephalic Neck- Supple, No lymphadenopathy, thyroid WNL RESPIRATORY Normal I:E, Clear to auscultation CARDIOVASCULAR Regular, rate and rhythm, No murmurs or rubs MUSCULOSKELETAL Back- nontender Shoulders- decreased ROM, tender over GH joint, DTR 2+ NEUROLOGICAL Gait normal PSYCHIATRIC Oriented to person, place and time Mood and affect WNL Appearance WNL Speech WNL Thought processes WNL Tobacco/Smoking Status: Tobacco use Status Tobacco use date assessed 12/07/24 12/07/24 11:32 Patient Tobacco Use Status Never used Tobacco 12/07/24 11:32 e-Cigarette/Vaping Use Never Used 12/07/24 11:38 PHQ-9: PHQ-9 Score PHQ-9: Total score 1 12/07/24 13:06 Thrive Assessment: Date of Thrive Assessment Date Thrive assessed 12/07/24 12/07/24 12:14 Coding Level of Care Code New Pt New Pt Level 4 (83880) Patient Type New Diagnoses Bilateral shoulder pain M25.511; M25.512 History of breast cancer Z85.3 Morbid obesity E66.01 Health care maintenance Z00.00 Time Spent (min) 30 Comment Time spent on chart review, H&P, patient education, orders. Assessment & Plan Assessment & Plan (1) Bilateral shoulder pain: Code(s): M25.511 - Pain in right shoulder; M25.512 - Pain in left shoulder Category: Medical Plan: The patient is experiencing severe osteoarthritis with osmr-yp-[id number] contact confirmed by x-rays. Gabapentin and Celecoxib are prescribed for pain management, and a follow-up with orthopedics is advised to discuss surgical options. Patient to follow up in 4 weeks or sooner if symptoms persist or worsen. (2) History of breast cancer: Code(s): Z85.3 - Personal history of malignant neoplasm of breast Category: Medical Plan: The patient is under regular follow-up for breast cancer and is scheduled for a CT scan of the chest and abdomen. (3) Morbid obesity: Comment: BMI today was 48.7 Code(s): E66.01 - Morbid (severe) obesity due to excess calories Category: Medical Plan: Discussed the health risks of obesity with the patient. Reviewed benefits of even moderate weight loss with the patient. Patient will gradually try and increase exercise to 30-40 min 5-7 times per week. We discussed they may need to break the exercise up into 2-3 sessions daily due to osteoarthritis. We discussed the patient adding more fruits and vegetables to their diet. Will monitor weight and follow up in 3 months. (4) Health care maintenance: Code(s): Z00.00 - Encounter for general adult medical examination without abnormal findings Plan: Patient does not want to address today. Patient to follow up in 3 months or sooner if needed. Plan I discussed with the patient the management of her osteoarthritis, including the use of gabapentin and Celecoxib for pain control. We also talked about the potential for surgical intervention and the importance of consulting with [facility]. The patient is advised to follow up with the cancer center for her breast cancer management and to undergo the scheduled CT scan. Medications: New gabapentin for chronic pain 100 mg PO BEDTIME 30 caps 0RF celecoxib (Celebrex) with food for shoulder pain 100 mg PO BID 60 caps 0RF Patient Instructions: - Take gabapentin 100 mg at bedtime to help with pain and sleep. - Take Celecoxib twice daily with food to manage inflammation and pain. - Schedule a follow-up appointment with [facility] to discuss surgical options. - Attend the scheduled CT scan for breast cancer follow-up.
[2024-12-07 11:35] VITALS: PULSE 84; RESP 18; TEMP 36.4; O2SAT 98; BMI 48.7
--- OUTSIDE RECORDS SUMMARY | 2024-12-07 14:09 | XMS_ITS | Patient Health Record ---
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 Name Role Phone Osmar Iglesias MD Primary Care Provider UnavailCornell Schrader Unavailable [phone] Reason For Referral No Information Medications Medication SIG (Take, Route, Frequency, Duration) Notes Start Date End Date Status Amoxicillin 500 MG 4 CAPSULES BY MOUTH 1 HOUR BEFORE DENTAL APPT Oral; Duration: 4 Not-Taking Letrozole Active Furosemide 20 MG TAKE 1 TABLET BY BERAN TH EVERY DAY Oral; Duration: 30 Not-Taking Metoprolol Succinate Not-Taking Social History Tobacco Use: Social History Observation Description Date Details (start date - stop date) Never Smoker NA - NA Tobacco Use/Smoking Question Answer Notes Are you a: nonsmoker Alcohol Screen Question Answer Notes Did you have a drink containing alcohol in the p ast year? No Points 0 Interpretation Negative Problems Problem Type SNOMED Code ICD Code Onset Dates Problem Status W/U Status Risk Notes Problem Pain in limb (83961518) Pain in unspecified foot (M79.673) Active confirmed Plan Of Treatment Pending Test Test Name Order Date X ray : Foot, left 2V 08/03/2015 X ray : Foot, right 2V 08/03/2015 Insurance Providers Payer Name Payer Address Payer Phone Subscriber Number Group Number Insured Name Patient Relationship to Insured Coverage Start Date Coverage End Date [employer] Medicare [id number] [address] [address] [place] [phone] [id number] Imani Carr Self - patient is the insured Medical (General) History Medical History History ICD Code hip pain Cancer Hernia Transfusions Joint implants/screws Arthritis double hip replacement Surgical History Surgery Date(Month/Year) breast cancer hernia surgery 2006 bilateral hip surgery 2008
== END 2024-12-07 12:15 | disposition home or self-care (01) ==
PROVIDERS: PCP Physician Assistant Medical; Visit Provider Physician Assistant Medical
DX: M25.511 Pain in right shoulder (principal); M25.512 Pain in left shoulder; E66.01 Morbid (severe) obesity due to excess calories; Z68.42 Body mass index [BMI] 45.0-49.9, adult; Z85.3 Personal history of malignant neoplasm of breast

== ENCOUNTER → 2024-12-07 11:28 | Outpatient (BNVA) | payer MEDICARE, SELFPAY | PROVIDERS: PCP Family Medicine; Visit Provider Physician Assistant Medical | DX: M19.011 Primary osteoarthritis, right shoulder (principal); M19.012 Primary osteoarthritis, left shoulder; E66.01 Morbid (severe) obesity due to excess calories; Z68.42 Body mass index [BMI] 45.0-49.9, adult; Z85.3 Personal history of malignant neoplasm of breast; Z13.30 Encounter for screening examination for mental health and behavioral disorders, unspecified; Z13.39 Encounter for screening examination for other mental health and behavioral disorders | CPT/HCPCS: 96127; 99202 ==

== ENCOUNTER 2025-01-13 10:13 | Outpatient (AMB) | payer MEDICARE, SELFPAY ==
--- NOTE | 2025-01-13 09:26 | MHC.PC.OV ---
Vital Signs 01/13/25 10:19 Height 5 ft 3 in Weight 275 lb BMI 48.7 Pulse 81 Pulse Source Pulse Oximeter Temp 97.2 F Temp Source Temporal Artery Scan Pulse Oximetry (%) 98 Oxygen Delivery Method Room Air Intake Visit Reasons: pain under right breast off and on (see comments) Accompanied by: Self / Same As Patient Allergies No Known Allergies Allergy (Unknown, Verified 12/07/24 11:29) Medication List - Last Reconciled 01/24/25 by BERTHA Weaver azithromycin (Zithromax) For 250 mg dose pack: take 500 mg today (day 1), then 250 mg for 4 days (days 2-5) PO celecoxib (Celebrex) 100 mg PO BID gabapentin 100 mg PO BEDTIME letrozole 2.5 mg PO DAILY multivitamin 1 tab PO DAILY palbociclib (Ibrance) mg PO Tobacco use date assessed: 01/06/25 Fall risk assessment: No Falls in past year Last assessed Fall Risk: 01/13/25 Dental Screening Dental Screen Date: 01/06/25 Did you have a dental visit in the last 12 months?: Yes Did you have a dental problem in the last 6 months where you did not have access to dental care?: No HPI HPI Comments History of Present Illness Details The patient is a 74-year-old female with with history of breast cancer, bilateral shoulder pain and obesity presenting with shoulder pain and follow-up on lung nodules. The shoulder pain has been persistent and severe, impacting her ability to sleep and perform daily activities. Despite increasing the dose of gabapentin, the pain remains unrelieved, indicating a need for further evaluation and management. The lung nodules were initially identified in 2019 following the discovery of fluid in the left lung, which was associated with metastatic breast cancer. The patient has been under treatment since then, with recent imaging showing a slight increase in the left lower lobe nodule. Genetic testing is underway to guide potential changes in her medication regimen. The patient also reports skin irritation diagnosed as intertrigo, which she manages with powder application to reduce moisture and irritation. This condition is exacerbated by sweating and requires careful skin care to prevent worsening. Additionally, the patient has a history of a hernia, which has become more prominent with weight gain. She acknowledges that weight loss may alleviate some of the pressure and symptoms associated with the hernia. Medical History: - Metastatic breast cancer - Hernia Medications: - Gabapentin 200 mg twice daily for shoulder pain Patient was informed and verbally consented to the use of an ambient scribe for clinic note documentation during this visit. [facility] Medical History (Updated 01/24/25 @ 01:07 by BERTHA Weaver) Bilateral shoulder pain Breast cancer History of breast cancer Intertrigo Morbid obesity Partial small bowel obstruction Pulmonary nodules Recurrent ventral hernia Surgical History (Updated 12/04/24 @ 15:38 by Linda Gann) H/O hernia repair Hip joint replacement status History of colonoscopy (~07/31/13) Family History (Updated 01/13/25 @ 10:25 by Sania Crespo MA) Father Throat cancer Brother Throat cancer Mother Breast cancer Social History Household Members: None Housing: Other Housing Other:: COOP Do you presently have visiting nurse or other home services: No Alcohol intake: never Patient Tobacco Use Status: Never used Tobacco e-Cigarette/Vaping Use: Never Used service: No Current occupational status: retired Cognitive needs: No Hearing needs: No Vision needs: No Questionnaire PHQ-9 Over the last 2 weeks, how often have you been bothered by any of the following problems? 1. Little interest or pleasure in doing things: not at all 2. Feeling down, depressed, or hopeless: not at all 3. Trouble falling or staying asleep, or sleeping too much: not at all 4. Feeling tired or having little energy: not at all 5. Poor appetite or overeating: not at all 6. Feeling bad about yourself - or that you are a failure or have let yourself or your family down: not at all 7. Trouble concentrating on things, such as reading the newspaper or watching television: not at all 8. Moving or speaking so slowly that other people could have noticed. Or the opposite - being so fidgety or restless that you have been moving around a lot more than usual: not at all 9. Thoughts that you would be better off or of hurting yourself in some way: not at all Total score: 0 Depression Screening Interpretation: Negative Depression Screening Done: Yes Source: Developed by Drs. Sly Bean, Chiara Puente, Jovi Aguilera and colleagues, with an educational bharath from [employer]. Thrive Questionnaire Date Thrive assessed: 01/13/25 I am a: Patient Within the past 12 months, did the food you bought not last and you didn't have the money to get more?: Never true Within the past 12 months, did you worry whether your food would run out before you got money to buy more?: Never true Do you have trouble paying for medicines?: No Do you have trouble getting transportation to medical appointments?: No Do you have trouble paying your heating and electricity bill?: No Do you have trouble taking care of your child, family member or friend?: No Do you have trouble with day-to-day activities such as bathing, preparing meals, shopping, managing finances, etc.?: No Are you currently unemployed and looking for a job?: No Are you interested in more education?: No THRIVE Score: 0 AUDIT C Alcohol Use Questionnaire (AUDIT-C) 1. How often do you have a drink containing alcohol?: Never 3. How often do you have six or more drinks on one occasion?: Never Total Score: 0 DANAY-7 AMB Questionnaire DANAY-7 Date DANAY - 7 assessed: 01/13/25 Feeling nervous, anxious, or on edge: 0 = Not at all Not being able to stop or control worryin = Not at all Worrying too much about different things: 0 = Not at all Trouble relaxin = Not at all Being so restless that it is hard to sit still: 0 = Not at all Becoming easily annoyed or irritable: 0 = Not at all Feeling afraid as if something awful might happen: 0 = Not at all Total DANAY-7 score (0-4 normal; 5-9 mild; 10-14 moderate; 15-21 severe): 0 Source: Developed by Drs. Sly Bean, Chiara Puente, Jovi Aguilera and colleagues, with an educational bharath from [employer]. Review of Systems Narrative - Musculoskeletal: Reports severe shoulder pain impacting sleep and daily activities. - Respiratory: Reports history of lung nodules and recent imaging findings. - Integumentary: Reports skin irritation consistent with intertrigo, exacerbated by sweating. Physical exam (Primary Care) Vital Signs: Last Vital Signs Temp 97.2 F 01/13/25 10:19 Pulse 81 01/13/25 10:19 Pulse Ox 98 01/13/25 10:19 Oxygen Delivery Method Room Air 01/13/25 10:19 BMI result Body Mass Index 48.7 GENERAL Well developed, obese, in no apparent distress HEENT Head-Normocephalic Neck- Supple, No lymphadenopathy, thyroid WNL RESPIRATORY Normal I:E, Auscultation revealed fluid in the right lower lobe of the lung CARDIOVASCULAR Regular, rate and rhythm, No murmurs or rubs GASTROINTESTINAL Soft, nontender, normal bowel sounds, no masses MUSCULOSKELETAL Back- nontender Joints- no swelling or deformity NEUROLOGICAL Gait normal PSYCHIATRIC Oriented to person, place and time Mood and affect WNL Appearance WNL Speech WNL Thought processes WNL Tobacco/Smoking Status: Tobacco use Status Tobacco use date assessed 01/06/25 01/13/25 09:26 Patient Tobacco Use Status Never used Tobacco 01/13/25 09:26 e-Cigarette/Vaping Use Never Used 01/13/25 09:26 PHQ-9: PHQ-9 Score PHQ-9: Total score 0 01/13/25 10:26 Depression Screening Interpretation: Negative Thrive Assessment: Date of Thrive Assessment Date Thrive assessed 01/13/25 01/13/25 10:26 Coding Level of Care Code Established Pt Est Pt Level 4 (27984) Established Pt Complex EM visit Add On G2211 Patient Type Established Diagnoses Bilateral shoulder pain M25.511; M25.512 Morbid obesity E66.01 Recurrent ventral hernia K43.2 Pulmonary nodules R91.8 Intertrigo L30.4 Time Spent (min) 30 Comment Time spent on chart review, H&P, patient education and orders Assessment & Plan Assessment & Plan (1) Bilateral shoulder pain: Code(s): M25.511 - Pain in right shoulder; M25.512 - Pain in left shoulder Category: Medical Plan: The patient reports severe shoulder pain that has not improved with increased doses of gabapentin. A prescription for 300 mg gabapentin at bedtime was discussed, and the patient will continue with her current supply before transitioning to the new dosage. Consideration for stronger pain management, such as tramadol, was discussed but deferred until after consultation with her biomedical equipment specialist. (2) Morbid obesity: Comment: BMI today was 48.7 Code(s): E66.01 - Morbid (severe) obesity due to excess calories Category: Medical Plan: Patient has maintained the same weight. Diet and exercise were reviewed. (3) Recurrent ventral hernia: Code(s): K43.2 - Incisional hernia without obstruction or gangrene Category: Medical Plan: The patient has a history of a hernia that has become more prominent with weight gain. She acknowledges that weight loss may alleviate some of the pressure and symptoms associated with the hernia. No immediate surgical intervention is planned, but monitoring and lifestyle modifications were discussed. (4) Pulmonary nodules: Code(s): R91.8 - Other nonspecific abnormal finding of lung field Category: Medical Plan: The patient has a history of lung nodules associated with metastatic breast cancer. Recent imaging shows a slight increase in the left lower lobe nodule. Genetic testing is being conducted to guide potential changes in her treatment regimen. A follow-up appointment is planned to review the results and adjust the treatment plan accordingly. (5) Intertrigo: Code(s): L30.4 - Erythema intertrigo Category: Medical Plan: The patient manages intertrigo with powder application to reduce moisture and irritation. She was advised to continue this regimen and monitor for any signs of infection or worsening symptoms. Plan During the visit, we discussed the patient's ongoing shoulder pain and the ineffectiveness of current pain management strategies. We considered increasing the gabapentin dosage and discussed the potential use of tramadol, which was deferred until after orthopedic consultation. For the lung nodules, we reviewed the recent CT scan results and planned for genetic testing to guide future treatment adjustments. We also addressed the management of intertrigo and the patient's hernia, emphasizing lifestyle modifications and monitoring. Medications: New azithromycin (Zithromax) For 250 mg dose pack: take 500 mg today (day 1), then 250 mg for 4 days (days 2-5) PO 6 tabs 0RF Patient Instructions: - Increase gabapentin to 300 mg at bedtime after finishing current supply. - Monitor shoulder pain and consult with biomedical equipment specialist as planned. - Continue using powder for intertrigo and monitor for any signs of infection. - Follow up in three to four weeks to review genetic testing results and adjust treatment plan.
[2025-01-13 10:19] VITALS: PULSE 81; TEMP 36.2; O2SAT 98; BMI 48.7
--- OUTSIDE RECORDS SUMMARY | 2025-01-13 12:39 | XMS_ITS | Patient Health Record ---
Author Organization [facility] rajani Sterling Address [address] [place] [address] Care Team Providers Care Master Carpenter Name Role Phone Osmar Iglesias MD Primary Care Provider UnavailCornell Ramsey Unavailable [phone] Reason For Referral No Information Medications Medication SIG (Take, Route, Frequency, Duration) Notes Start Date End Date Status Amoxicillin 500 MG 4 CAPSULES BY MOUTH 1 HOUR BEFORE DENTAL APPT Oral; Duration: 4 Not-Taking Letrozole Active Furosemide 20 MG TAKE 1 TABLET BY BERNA TH EVERY DAY Oral; Duration: 30 Not-Taking [...] Status Risk Notes Problem Pain in limb ([id number]) Pain in unspecified foot (M79.673) Active confirmed Plan Of Treatment Pending Test Test Name Order Date X ray : Foot, left 2V 08/03/2015 X ray : Foot, right 2V 08/03/2015 Insurance Providers Payer Name Payer Address Payer Phone Subscriber Number Group Number Insured Name Patient Relationship to Insured Coverage Start Date Coverage End Date [employer] Medicare [id number] [address] [address] [place] [phone] [id number] Imani Carr Self - patient is the insured Medical (General) History Medical History History ICD Code hip pain Cancer Hernia Transfusions Joint implants/screws Arthritis double hip replacement Surgical History Surgery Date(Month/Year) breast cancer /2013 hernia surgery 2007 bilateral hip surgery 2008
== END 2025-01-13 10:52 | disposition home or self-care (01) ==
LOC: HO.HMCHD 10:14
PROVIDERS: PCP Physician Assistant Medical; Visit Provider Physician Assistant Medical
DX: M25.511 Pain in right shoulder (principal); M25.512 Pain in left shoulder; E66.01 Morbid (severe) obesity due to excess calories; K43.2 Incisional hernia without obstruction or gangrene; R91.8 Other nonspecific abnormal finding of lung field; L30.4 Erythema intertrigo

== ENCOUNTER → 2025-01-13 10:13 | Outpatient (BNVA) | payer MEDICARE, SELFPAY | PROVIDERS: PCP Physician Assistant Medical; Visit Provider Physician Assistant Medical | DX: M25.511 Pain in right shoulder (principal); M25.512 Pain in left shoulder; E66.01 Morbid (severe) obesity due to excess calories; K43.2 Incisional hernia without obstruction or gangrene; R91.8 Other nonspecific abnormal finding of lung field; L30.4 Erythema intertrigo; Z13.31 Encounter for screening for depression; Z13.39 Encounter for screening examination for other mental health and behavioral disorders | CPT/HCPCS: 96127; 99212 ==

== ENCOUNTER 2025-02-16 08:56 | Outpatient (AMB) | payer MEDICARE, SELFPAY ==
[2025-02-16 09:08] VITALS: PULSE 75; TEMP 36.6; O2SAT 96; BMI 48.0
--- NOTE | 2025-02-16 09:08 | A.OFFPC_ITS ---
Vital Signs 02/16/25 09:08 Height 5 ft 3 in Weight 271 lb BMI 48.0 Pulse 75 Pulse Source Pulse Oximeter Temp 97.8 F Temp Source Temporal Artery Scan Pulse Oximetry (%) 96 Oxygen Delivery Method Room Air Intake Visit Reasons: 4 week f/u Sales Enablement Lead Required: No Accompanied by: Self / Same As Patient Allergies No Known Allergies Allergy (Unknown, Verified 02/16/25 09:10) Medication List - Last Reconciled 02/16/25 by BERTHA Weaver letrozole 2.5 mg PO DAILY multivitamin 1 tab PO DAILY palbociclib (Ibrance) mg PO Tobacco use date assessed: 02/16/25 Fall risk assessment: No Falls in past year Last assessed Fall Risk: 02/16/25 Dental Screening Dental Screen Date: 02/16/25 Did you have a dental visit in the last 12 months?: Yes Did you have a dental problem in the last 6 months where you did not have access to dental care?: No HPI HPI Comments History of Present Illness Details History of Present Illness The patient is a 74 year old female with with history of breast cancer, bilateral shoulder pain and obesity presenting with severe bilateral shoulder pain. The patient reports significant pain in both shoulders and arms, describing it as a constricting or squishing feeling affecting the entire upper body and back of the neck. This pain limits the ability to perform activities of daily living, such as lifting arms and dressing. Past imaging revealed the left shoulder is [id number], and the condition has progressed over time. Previous interventions include physical therapy, which was too painful to continue, and a cortisone injection in August that provided only one day of relief. The patient states that previously prescribed Celebrex and Gabapentin which were not effective and is not currently taking anything for pain. Shoulder replacement surgery has been mentioned as a possible treatment, but recovery is a concern. The patient has a history of cancer and has been taking Ibrance and letrozole for six years, attributing a recent weight gain to the letrozole. The patient receives regular oncologic care, including lab work and surveillance CT scans every three months, and has a follow-up appointment scheduled for April 13. She is seen at [facility]. She was recently transferred to Dr. Robertson. 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 Medical History: - History of cancer, on treatment with I brance and letrozole for six years. - Bilateral shoulder osteoarthritis, not ed to be [id number] on the left. - Possible history of a rotator cuff pro blem. Medications: - Ibrance for cancer - Letrozole for cancer Health Maintenance - The patient has an appointment with [facility] on April 13. - Undergoes surveillance CT scans every three months for cancer monitoring. - The patient does not get mammograms bu t undergoes regular CT scans and MRIs for surveillance. - Lab work is done every three months [facility] the oncologist. Social History - The patient is retired. - The patient lives alone. - Functional status is limited by should er pain, which impacts activities of daily living such as dressing. 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 - Reports weight gain, which is attribut ed to letrozole. Patient was informed and verbally consented to the use of an ambient scribe for clinic note documentation during this visit. [facility] Medical History (Updated 02/16/25 @ 10:01 by BERTHA Weaver) Bilateral shoulder pain Breast cancer History of breast cancer Intertrigo MDD (major depressive disorder), recurrent episode, mild Morbid obesity Partial small bowel obstruction Pulmonary nodules Recurrent ventral hernia Surgical History H/O hernia repair Hip joint replacement status History of colonoscopy (~07/31/13) Family History Father Throat cancer Brother Throat cancer Mother Breast cancer Social History Household Members: None Housing: Other Housing Other:: COOP Do you presently have visiting nurse or other home services: No Alcohol intake: never Patient Tobacco Use Status: Never used Tobacco e-Cigarette/Vaping Use: Never Used service: No Current occupational status: retired Cognitive needs: No Hearing needs: No Vision needs: No Questionnaire PHQ-9 Over the last 2 weeks, how often have you been bothered by any of the following problems? 1. Little interest or pleasure in doing things: not at all 2. Feeling down, depressed, or hopeless: nearly every day 3. Trouble falling or staying asleep, or sleeping too much: nearly every day 4. Feeling tired or having little energy: nearly every day 5. Poor appetite or overeating: not at all 6. Feeling bad about yourself - or that you are a failure or have let yourself or your family down: not at all 7. Trouble concentrating on things, such as reading the newspaper or watching television: not at all 8. Moving or speaking so slowly that other people could have noticed. Or the opposite - being so fidgety or restless that you have been moving around a lot more than usual: not at all 9. Thoughts that you would be better off or of hurting yourself in some way: not at all Total score: 9 Depression Screening Interpretation: Positive Depression Screening Follow-up: Declines treatment Depression Screening Done: Yes Source: Developed by Drs. Sly Bean, Chiara Puente, Jovi Aguilera and colleagues, with an educational bharath from [employer]. Thrive Questionnaire Date Thrive assessed: 02/16/25 I am a: Patient Within the past 12 months, did the food you bought not last and you didn't have the money to get more?: Never true Within the past 12 months, did you worry whether your food would run out before you got money to buy more?: Never true Do you have trouble paying for medicines?: No Do you have trouble getting transportation to medical appointments?: No Do you have trouble paying your heating and electricity bill?: No Do you have trouble taking care of your child, family member or friend?: No Do you have trouble with day-to-day activities such as bathing, preparing meals, shopping, managing finances, etc.?: No Are you currently unemployed and looking for a job?: No Are you interested in more education?: No THRIVE Score: 0 AUDIT C Alcohol Use Questionnaire (AUDIT-C) 1. How often do you have a drink containing alcohol?: Never 3. How often do you have six or more drinks on one occasion?: Never Total Score: 0 DANAY-7 AMB Questionnaire DANAY-7 Date DANAY - 7 assessed: 02/16/25 Feeling nervous, anxious, or on edge: 3 = Nearly every day Trouble relaxin = Not at all Being so restless that it is hard to sit still: 0 = Not at all Becoming easily annoyed or irritable: 0 = Not at all Feeling afraid as if something awful might happen: 0 = Not at all Source: Developed by Drs. Sly Bean, Chiara Puente, Jovi Aguilera and colleagues, with an educational bharath from [employer]. Review of Systems Narrative Review of Systems - Constitutional: Reports weight gain. - Musculoskeletal: Reports severe pain in bilateral shoulders, arms, and back of the neck. - Neurological: Reports arm weakness. Physical exam (Primary Care) Vital Signs: Last Vital Signs Temp 97.8 F 02/16/25 09:08 Pulse 75 02/16/25 09:08 Pulse Ox 96 02/16/25 09:08 Oxygen Delivery Method Room Air 02/16/25 09:08 BMI result Body Mass Index 48.0 GENERAL Well developed, obese, in no apparent distress- patient's weight was by his tory HEENT Head-Normocephalic Neck- Supple, No lymphadenopathy, thyroid WNL RESPIRATORY Normal I:E, Clear to auscultation CARDIOVASCULAR PATIENT DECLINED BP SCREENING Regular, rate and rhythm, No murmurs or rubs MUSCULOSKELETAL Shoulders- decreased ROM, tender over GH joints, posterior muscle tightness noted, crepitus noted NEUROLOGICAL Gait normal PSYCHIATRIC Oriented to person, place and time Mood and affect - depressed Appearance WNL Speech WNL Thought processes WNL Tobacco/Smoking Status: Tobacco use Status Tobacco use date assessed 02/16/25 02/16/25 09:12 Patient Tobacco Use Status Never used Tobacco 02/16/25 09:12 e-Cigarette/Vaping Use Never Used 02/16/25 09:12 PHQ-9: PHQ-9 Score PHQ-9: Total score 9 02/16/25 09:20 Depression Screening Interpretation: Positive Depression Screening Follow-up: Declines treatment Thrive Assessment: Date of Thrive Assessment Date Thrive assessed 02/16/25 02/16/25 09:12 Narrative Physical Exam - Musculoskeletal: Palpation reveals tightness in the upper body and neck. Coding Level of Care Code Established Pt Est Pt Level 4 (47211) Patient Type Established Diagnoses Bilateral shoulder pain M25.511; M25.512 History of breast cancer Z85.3 MDD (major depressive disorder), recurrent episode, mild F33.0 Time Spent (min) 35 Comment Time spent on chart review, H&P, patient education and follow up Assessment & Plan Assessment & Plan (1) Bilateral shoulder pain: Code(s): M25.511 - Pain in right shoulder; M25.512 - Pain in left shoulder Category: Medical Plan: Patient to call [facility] for follow up. Patient declines medications to help with pain. (2) History of breast cancer: Code(s): Z85.3 - Personal history of malignant neoplasm of breast Category: Medical Plan: Patient to continue to follow up with Oncology (3) MDD (major depressive disorder), recurrent episode, mild: Code(s): F33.0 - Major depressive disorder, recurrent, mild Category: Medical Plan: Patient declines referral for Counseling or medication for depression. Will follow up. Patient would like to be seen by MD. Plan Plan Patient was informed and verbally consented to the use of an ambient scribe for clinic note documentation during this visit. 1. Bilateral Shoulder Osteoarthritis The patient presents with severe, debilitating bilateral shoulder pain, which is reportedly [id number] on the left side based on prior imaging. Previous treatments including physical therapy and a cortisone injection have been ineffective. The pain significantly impacts the patient's functional status and quality of life. The plan is for the patient to schedule a follow-up appointment with the extracorporeal circulation specialist at [facility] to discuss further management options. The patient will request to see a physician at the appointment. Potential treatments to be discussed include a second cortisone injection or surgical evaluation for a shoulder replacement, which is likely the only definitive fix. 2. Chronic Pain The patient reports significant chronic pain and is frustrated due to the lack of efficacy from prior prescription medications. The patient declined a trial of stronger pain medication, including opioids. The management plan will focus on addressing the underlying orthopedic cause of the pain via specialist consultation. 3. Cancer Surveillance The patient has a history of cancer and is being treated with Ibrance and letrozole, with active surveillance under the care of an oncologist. The plan is to continue with the current oncologic care. The patient will proceed with a scheduled surveillance CT scan prior to the next oncology appointment on April 13. The patient was asked to provide a card to the oncologist to ensure this office is copied on all future reports and lab results for improved care coordination. Discussion Notes I acknowledged the patient's significant frustration with the severe, chronic bilateral shoulder pain and its profound impact on daily functioning and quality of life. We discussed that management options from a primary care standpoint are limited, particularly given the patient's stated refusal to try further prescription pain medications after previous treatments were ineffective. We discussed that while the first cortisone injection provided only minimal, temporary relief, a second injection can sometimes be more effective, although this is not guaranteed. We reviewed that shoulder replacement surgery is likely the only definitive solution for the patient's kylf-ka-uvex arthritis, but also acknowledged the patient's concerns regarding the long recovery period, especially since the patient lives alone. I advised the patient that the most important next step is to re-establish care with an extracorporeal circulation specialist to explore these advanced treatment options. The patient agreed to contact [facility] for an appointment. For better care coordination, I provided my card and requested the patient ask the oncologist's office to copy me on future medical records. Patient Instructions - Please call [facility] to schedule a follow-up appointment to discuss your shoulder pain. - You may request to see a doctor specifically when you make your orthopedic appointment. - Continue with your current cancer medications as prescribed. - Keep your scheduled appointment with your cancer doctor on April [address] scan they ordered for you before that visit. - Please give my business card to your cancer doctor's office and ask them to send me copies of your reports. - Please call our office to let us know what the orthopedist recommends after your appointment with them.
== END 2025-02-16 11:38 | disposition home or self-care (01) ==
LOC: HO.HMCHD 08:56
PROVIDERS: PCP Physician Assistant Medical; Visit Provider Physician Assistant Medical
DX: M25.511 Pain in right shoulder (principal); M25.512 Pain in left shoulder; Z85.3 Personal history of malignant neoplasm of breast; F33.0 Major depressive disorder, recurrent, mild

== ENCOUNTER → 2025-02-16 08:56 | Outpatient (BNVA) | payer MEDICARE, SELFPAY | PROVIDERS: PCP Physician Assistant Medical; Visit Provider Physician Assistant Medical | DX: M25.511 Pain in right shoulder (principal); M25.512 Pain in left shoulder; F33.0 Major depressive disorder, recurrent, mild; Z85.3 Personal history of malignant neoplasm of breast; Z13.31 Encounter for screening for depression; Z13.39 Encounter for screening examination for other mental health and behavioral disorders | CPT/HCPCS: 96127; 99212 ==